=== PATIENT | male | born 1980 | race Caucasian/White ===

== ENCOUNTER 2024-09-17 08:21 | Outpatient (REF) | payer BC, SELFPAY ==
[2024-09-17 09:50] LABS: MANUAL DIFF FLAG NO
[2024-09-17 10:31] LABS: Basophils Percent Auto 0.6 % (0-2); Eosinophils Absolute Auto 0.1 X10*3/uL (0.0-0.4); Eosinophils Percent Auto 1.7 % (0-4); Hematocrit 40.6 % (42.0-52.0); Hemoglobin 14.2 g/dl (14.0-18.0); Imm Gran Abs Auto 0.03 X10*3/uL (0.00-0.03); Imm Gran Pct Auto 0.6 % (0.0-0.4); Lymphocytes Absolute Auto 1.7 X10*3/uL (1.2-4.9); Lymphocytes Percent Auto 30.8 % (20-40); Mean Corpuscular Hemoglobin 28.6 pg (27.0-33.0); Mean Corpuscular Volume 81.7 fL (80.0-98.0); Mean Platelet Volume 11.5 fL (9.4-12.4); Monocytes Absolute Auto 0.4 X10*3/uL (0.1-1.2); Monocytes Percent Auto 6.5 % (2-11); Neutrophils Absolute Auto 3.3 x10*3/uL (2.0-8.3); Neutrophils Percent Auto 59.8 % (45-73); Platelet Count 219 X10*3/uL (160-400); Red Blood Count 4.97 X10*6/uL (4.60-5.80); Red Cell Distribution Width 12.3 % (11.0-16.0); White Blood Count 5.4 X10*3/uL (4.8-10.8)
[2024-09-17 11:19] LABS: Uric Acid 7.4 mg/dL (3.4-7.0)
[2024-09-19 03:13] LABS: Lyme Abs Screen <0.90 index
[2024-09-28 07:13] LABS: Islet Cell Antibody Screen NEGATIVE (NEGATIVE)
== END 2024-09-17 08:22 | disposition home or self-care (01) ==
LOC: HO.LAB 08:21
PROVIDERS: PCP Family Medicine; Visit Provider Internal Medicine
DX: E11.65 Type 2 diabetes mellitus with hyperglycemia (principal); R22.42 Localized swelling, mass and lump, left lower limb; M79.675 Pain in left toe(s); G57.90 Unspecified mononeuropathy of unspecified lower limb
CPT/HCPCS: 36415; 82947; 84550; 85025; 86341; 86617; 86618

== ENCOUNTER 2024-09-17 08:21 | Outpatient (AMB) | payer BC, SELFPAY ==
--- NOTE | 2024-09-17 08:23 | A.OFFVIS_ITS ---
Vital Signs 09/17/24 08:28 Height 5 ft 8 in Weight 209 lb 7.026 oz BMI 31.8 BP 118/78 Blood Pressure Location Rt brachial Position Sitting Pulse 90 Pulse Source Pulse Oximeter Intake Visit Reasons: DM/CONFIRMED Intake Note: NEW Patient presents today to establish treatment for Type 2 Diabetes Mellitus: Last Diabetic eye exam was on: DUE Last Podiatry exam was on: 09/05/2024, [facility] Most recent HbA1c: 9.7%, 07/27/2024, PCP Random Glucose- 188 mg/dL, Today Hoist Cylinder Loader Required: No Accompanied by: Self / Same As Patient Allergies No Known Allergies Allergy (Verified 09/17/24 08:26) HPI Comments Details: The patient is a 44 year old presenting for diabetes consultation Past medical: DVT, hyperlipidemia, neuropathy, recent LLE pain Diagnosed ~15 years ago. Last A1C 9.7% -Sept at [facility]. A few months prior 11.3 at orthopedics On metformin 1000mg twice daily. Using one touch glucometer. Checking fasting glucose. Did not bring meter today. Has been seeing orthopedics for what was originally thought to be left achilles tendinitis. 2 months into treatment found out he had left calf DVT. He is currently on eliquis. Has upcoming hematology consult. Left calf pain improved. Was having redness swelling of the left great toe, swelling of the foot. Redness and swelling of the left great toe has subsided but still having some swelling and fairly significant pain in the right distal leg and foot. Says decreased movement in left toe. ROS see HPI PHYSICAL EXAM: GENERAL: Alert and oriented x 3. NAD EYES: EOMI. Anicteric. HENT: Moist mucous membranes. No scleral icterus. No cervical lymphadenopathy. LUNGS: Clear to auscultation bilaterally. CARDIOVASCULAR: Regular rate and rhythm. No murmur. No JVD. ABDOMEN: Soft, non-tender +bs EXTREMITIES: Trace left lower extremity edema, palpable-1+ DP pulse SKIN: No rashes or lesions. Warm. NEUROLOGIC: No focal neurological deficits. CN II-XII grossly intact PSYCHIATRIC: Cooperative. Appropriate mood and affect REPLACED BY [facility] Surgical History No pertinent past surgical history Social History Alcohol intake: never Patient Tobacco Use Status: Never used Tobacco Physical Exam Vital Signs: Last Vital Signs Pulse 90 09/17/24 08:28 BP 118/78 09/17/24 08:28 BMI result Body Mass Index 31.8 Results Reviewed Results Reviewed: Laboratory Last Values Glucose (Clinic) 188 mg/dL (60-115) H 09/17/24 08:33 Assessment & Plan Assessment & Plan (1) Diabetes mellitus with hyperglycemia: Code(s): E11.65 - Type 2 diabetes mellitus with hyperglycemia Category: Medical Qualifiers: Diabetes mellitus type: type 2 Diabetes mellitus alf insulin use: without alf use Qualified Code(s): E11.65 - Type 2 diabetes mellitus with hyperglycemia Plan: Uncontrolled Continue checking fasting blood glucose once daily Start actos 30mg daily, mounjaro 2.5mg weekly Continue metformin 1000mg twice daily Referral to nutrition Referred to opho (2) Lower extremity neuropathy: Code(s): G57.90 - Unspecified mononeuropathy of unspecified lower limb Category: Medical Qualifiers: Laterality: bilateral Qualified Code(s): G57.93 - Unspecified mononeuropathy of bilateral lower limbs Plan: Left>right Monofilament, vibratory sense previously normal EMG ordered Referral for vascular pending hematology consult continue gabapentin (3) Localized swelling of toe of left foot: Code(s): R22.42 - Localized swelling, mass and lump, left lower limb Category: Medical Plan: check uric acid, cbc Orders: Orders Uric Acid Today E11.65 - Type 2 diabetes mellitus with hyperglycemia, G57.90 - Unspecified mononeuropathy of unspecified lower limb, M79.675 - Pain in left toe(s), R22.42 - Localized swelling, mass and lump, left lower limb Islet Cell Antibody Scrn/Titer Today E11.65 - Type 2 diabetes mellitus with hyperglycemia, G57.90 - Unspecified mononeuropathy of unspecified lower limb, M79.675 - Pain in left toe(s), R22.42 - Localized swelling, mass and lump, left lower limb Complete Blood Count Auto Diff Today E11.65 - Type 2 diabetes mellitus with hyperglycemia, G57.90 - Unspecified mononeuropathy of unspecified lower limb, M79.675 - Pain in left toe(s), R22.42 - Localized swelling, mass and lump, left lower limb NE electromyogram (EMG) Today G57.90 - Unspecified mononeuropathy of unspecified lower limb Lyme IgG/IgM w/reflex to WB Today G57.90 - Unspecified mononeuropathy of unspecified lower limb, R22.42 - Localized swelling, mass and lump, left lower limb Referrals Anthropology Faculty Member Nutrition Referral E11.65 - Type 2 diabetes mellitus with hyperglycemia Vascular Surgery Referral E11.65 - Type 2 diabetes mellitus with hyperglycemia, G57.90 - Unspecified mononeuropathy of unspecified lower limb, M79.675 - Pain in left toe(s), R22.42 - Localized swelling, mass and lump, left lower limb Ophthalmology Referral E11.65 - Type 2 diabetes mellitus with hyperglycemia, G57.90 - Unspecified mononeuropathy of unspecified lower limb, M79.675 - Pain in left toe(s), R22.42 - Localized swelling, mass and lump, left lower limb Medications: New pioglitazone 30 mg PO DAILY 90 tabs 3RF Mounjaro (tirzepatide) for 4 weeks 2.5 mg (0.5 mL) subcut QWEEK 2 mL 3RF NS Coding Level of Care Code New Pt Level 4 (45435) Complex EM visit Add On G2211 Diagnoses Type 2 diabetes mellitus with hyperglycemia, without long-term current use of insulin E11.65 Diabetes mellitus type: type 2 Diabetes mellitus alf insulin use: without manager terminal use Neuropathy involving both lower extremities G57.93 Laterality: bilateral Localized swelling of toe of left foot R22.42
[2024-09-17 08:28] VITALS: BP 118/78; PULSE 90; BMI 31.8
[2024-09-17 08:38] LABS: Glucose, Whole Blood 188 mg/dL (60-115)
== END 2024-09-17 09:11 | disposition home or self-care (01) ==
PROVIDERS: PCP Family Medicine; Visit Provider Internal Medicine
DX: E11.65 Type 2 diabetes mellitus with hyperglycemia (principal); G57.93 Unspecified mononeuropathy of bilateral lower limbs; R22.42 Localized swelling, mass and lump, left lower limb

== ENCOUNTER 2024-09-30 08:26 | Outpatient (AMB) | payer BC, SELFPAY ==
[2024-09-30 08:34] VITALS: BMI 31.2
--- NOTE | 2024-09-30 08:34 | A.OFFVIS_ITS ---
VS Expanded 09/30/24 08:34 09/30/24 08:46 Height 5 ft 8 in 5 ft 8 in Weight 205 lb 0.478 oz 205 lb BMI 31.2 31.2 Intake Visit Reasons: T2DM/CONFIRMED Allergies No Known Allergies Allergy (Verified 09/17/24 08:26) Nutrition Presentation Details: Pt presents for MNT for T2DM. Pt was referred by PCP Pt reports having increased appetite and snacking throughout the day. Has 2-3 meals/day B: Fruit/Veg juices, eggs rodriguez cheese, diet soda snack: nuts/fruits/crackers, diet soda L:fruits/crackers D: pasta/beef,diet soda fruits: 4+ fish: does not include veg: salads 3x/wk in juices dairy: 4+ (cheese) fluids: water/diet beverages 40-60 oz/d physical activity: sedentary etoh/smoking----- BS Monitoring Most Recent Diabetes Results: No Data to Display UPM-Axeyssa-Up.Jeor Equation Height: 5 ft 8 in Weight: 205 lb Resting Metabolic Rate: 1796.95 Calculated Activity Level: Mild Activity Calories Needed to Maintain Weight: 2470.81 Diagnosis Nutrition problem #1: excessive energy intake As related to (etiology) #1: lack of nutrit education As evidenced by (sign/symptom) #1: knowledge deficit of diet Monitoring/Goals Nutrition problem monitoring: level of knowledge/skill and total CHO intake Outcome progress: verbalized understanding [facility] Surgical History No pertinent past surgical history Social History Alcohol intake: never Patient Tobacco Use Status: Never used Tobacco Assessment & Plan Assessment & Plan (1) Diabetes mellitus with hyperglycemia: Code(s): E11.65 - Type 2 diabetes mellitus with hyperglycemia Category: Medical Qualifiers: Diabetes mellitus type: type 2 Diabetes mellitus keno terminal operator insulin use: without keno terminal operator use Qualified Code(s): E11.65 - Type 2 diabetes mellitus with hyperglycemia Plan: Wt: 93 Kg ( 10/19 ) Est kcal needs as per MSJ: 2500 (40% carb, 30% protein/fat) Est fluid needs as per 25-30 ml/d: 2800 Est prot per day as per 1 g/kg bw: 93 Recommend fiber intake : 8-10 g per day and gradually increase to 25-28 g per day for women and 35-38 g for men or as tolerated Recommend sodium intake per day : less than 2300 mg Educated patient on: ( R = reviewed V = verbalizes understanding N/R = needs review N/A = not applicable * Food sources of carbohydrate, adequate serving sizes and its role in various health conditions: R * Differences between complex carbohydrates a simple carbohydrates, role of fiber in diet: R * Lean protein sources of foods: R V NR * Differences between types of fats and role in diet (mono on saturated fat fatty acids, saturated fatty acids, trans fats): R basic * Food sources of sodium in salt and healthy modifications for heart health in kidney health: R V R/V * Vitamins and minerals: R V N/R * Healthy plate method concept: R * Physical activity: Benefits a precaution: R V N/R * Hypoglycemia protocol (rule of 15): R V N/R * Dietary prevention of Hyperglycemia: R Patient Instructions: Choose low fat food choices and reduce total carb to 80 g or less per meal following healthy plate method Keep hydrated by having water with meals and snacks Coding Level of Care Code Nutr Indiv Intake (79605) Diagnoses Type 2 diabetes mellitus with hyperglycemia, without long-term current use of insulin E11.65 Diabetes mellitus type: type 2 Diabetes mellitus senior living insulin use: without keno terminal operator use Time Spent (min) 30
[2024-09-30 08:46] VITALS: BMI 31.2
== END 2024-09-30 11:37 | disposition home or self-care (01) ==
LOC: HO.ENCR 08:26
PROVIDERS: PCP Family Medicine; Visit Provider Dietitian, Registered
DX: E11.65 Type 2 diabetes mellitus with hyperglycemia (principal)

== ENCOUNTER → 2024-09-30 08:26 | Outpatient (BNVA) | payer BC, SELFPAY | PROVIDERS: PCP Family Medicine; Visit Provider Dietitian, Registered | DX: E11.65 Type 2 diabetes mellitus with hyperglycemia (principal); Z71.3 Dietary counseling and surveillance | CPT/HCPCS: 97802 ==

== ENCOUNTER 2024-10-02 09:29 | Outpatient (AMB) | payer BC, SELFPAY ==
--- NOTE | 2024-10-02 09:30 | A.OFFVIS_ITS ---
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 Pt states he has history of a left LE blood clot and states swelling has reduced. His concern is his stiff toes, has difficulty putting on shoes. States had an ultrasound in Jul 2024 @ [facility]. He states he does get some discoloration. 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 He did have a DVT that was diagnosed in June of this year and has been on Eliquis 5 mg b.i.d. he is going to be on Eliquis for 6 months. He is followed by Hematology, who prescribed the Eliquis. He is a diabetic his last A1c was 9.7% in July. Complaints include pain in his left lower extremity calf, swelling of lower extremities particularly the left, cramping, fatigue, and he aviness of the lower extremities. It has been affecting their daily activities including walking and standing. It is noted more so in the left leg. He is a nonsmoker Patient denies any previous venous surgery or injections. Patient states he was diagnosed with a DVT in June of 2024 and has been on Eliquis b.i.d. since. Patient denies any history of phlebitis. Trial of compression includes - a boot he is wearing for a drop foot and elevation. They now present for vascular evaluation regarding their varicose veins. [facility] Surgical History No pertinent past surgical history Social History Alcohol intake: never Patient Tobacco Use Status: Never used Tobacco Review of Systems Const Reports as per HPI and Denies weakness ENT Reports Normal hearing present and Denies dizziness Card Reports as per HPI, Denies chest pain, Denies chest pain at rest, Denies chest pain with activity, Denies dyspnea and Denies dyspnea on exertion Resp Reports as per HPI, Denies cough, Denies dyspnea and Denies dyspnea on exertion GI Reports as per HPI, Denies abdominal pain, Denies nausea and Denies vomiting Musc Denies numbness Skin/Breast Reports as per HPI, Denies erythema and Denies wounds Neuro Reports Normal hearing present, Denies dizziness, Denies numbness, Denies Sens ory deficit (Neuro) and Denies weakness Psych Reports no additional complaints Endo Reports no additional complaints Physical Exam Vital Signs: BMI result Body Mass Index 31.2 Const General: healthy appearing and no acute distress Orientation/consciousness: patient oriented x3 HEENT Head: Yes normal to inspection Ears: hearing grossly normal bilaterally Mouth: Normal oral and palatal mucosa present Resp Effort & Inspection: normal respiratory effort and able to speak in complete sentences Auscultation: clear to auscultation bilaterally Cardio Jugular venous distension: no JVD Rate: regular rate Rhythm: regular rhythm Heart sounds: S1 normal heart sound present and S2 normal heart sound present Bruits: no abdominal aortic bruits, no carotid bruits, no femoral bruits and no renal bruits Peripheral pulses: Peripheral pulses 2+ throughout GI Inspection: Yes normal to inspection Palpation (GI): No Abdominal aortic bruit present Skin General skin exam: no rashes or lesions noted Wounds: no wounds Hair: normal Neuro General: patient oriented x3 Cranial nerves: Yes Normal hearing present Cognition (Neuro): normal cognition Gait exam (Neuro): Normal gait present Motor exam (neuro): 5/5 motor strength present throughout Sensory Exam: No Sensory deficit (Neuro) Extrem Other: Left lower extremity: +1 peripheral edema noted. Discoloration from mid ding to the ankle. Decreased range of motion of the left foot. Palpable DP pulses. CEAP: C - 4 E - primary A - superficial P - reflux General: Yes normal to inspection, Yes full ROM, Yes capillary refill normal and Yes normal gait Assessment & Plan Assessment & Plan (1) Varicose veins of both lower extremities with inflammation: Code(s): I83.11 - Varicose veins of right lower extremity with inflammation; I83.12 - Varicose veins of left lower extremity with inflammation Category: Medical Plan: Nick presenting as a referral from endocrinology for ongoing left lower extremity swelling and pain. He does have a history of a DVT, diagnosed in June. He continues on Eliquis b.i.d.. In short, the patient has evidence of venous insufficiency. I have discussed the pathophysiology with the patient. In addition I have provided informational material regarding venous disease to the patient. We have discussed conservative measures including compression, elevation, and exercise. I have also provided a handout regarding appropriate use of compression stockings and where to purchase good compression stockings as well. He does wear a boot daily, mostly at work, due to a foot drop/difficulty bearing weight on his left foot. I have taken the liberty of ordering venous insufficiency testing with the patient. They will follow up with me after testing. The patient had an opportunity to ask questions regarding the treatment plan. All questions were answered. No major barriers to understanding were identified. The patient expressed understanding and agreement with the above treatment plan. The patient is aware they should contact our office by phone for worsening of the current condition or the appearance of new symptoms. Thank you for allowing me to participate in the vascular care of this patient. If you have any questions or concerns regarding the treatment for the above condition please do not hesitate to contact me. The office telephone contact is [phone]. This note is constructed using voice recognition software. While every effort has been made to ensure accuracy, optimization engineer errors may have been included. Thank you for allowing me to participate in the care of your patient. Yours sincerely, STEVIE Cage Orders: Orders US venous duplex LE BI 1 Week I83.11 - Varicose veins of right lower extremity with inflammation, I83.12 - Varicose veins of left lower extremity with inflammation Coding Level of Care Code New Pt New Pt Level 4 (16759) Patient Type New Diagnoses Varicose veins of both lower extremities with inflammation I83.11; I83.12
[2024-10-02 09:31] VITALS: BMI 31.2
== END 2024-10-02 09:53 | disposition home or self-care (01) ==
LOC: HO.HVS 09:29
PROVIDERS: PCP Family Medicine; Visit Provider Physician Assistant Surgical
DX: I83.11 Varicose veins of right lower extremity with inflammation (principal); I83.12 Varicose veins of left lower extremity with inflammation
CPT/HCPCS: 99204

== ENCOUNTER 2024-10-17 08:25 | Outpatient (REF) | payer BC, SELFPAY | END 2024-10-17 08:26 | disposition home or self-care (01) | LOC: HO.US 08:25 | PROVIDERS: PCP Family Medicine; Visit Provider Physician Assistant Surgical | DX: I83.11 Varicose veins of right lower extremity with inflammation (principal); I83.12 Varicose veins of left lower extremity with inflammation | CPT/HCPCS: 93970 ==

== ENCOUNTER 2024-11-04 15:13 | Outpatient (AMB) | payer BC, SELFPAY ==
--- NOTE | 2024-11-04 15:18 | MHC.OFFVIS ---
Intake Visit Reasons: follow up s/p US 10/17/24 Intake Note: F/U US. Pt seen at [facility] after Thanksgiving. Pt had left leg swelling. DVT rule out. Special Needs Babysitter Required: No Accompanied by: Self / Same As Patient Allergies No Known Allergies Allergy (Verified 10/02/24 09:38) HPI HPI follow up s/p US 10/17/24: Details: Mega, a pleasant 44-year-old male patient, is presenting today for a follow up to a ultrasound performed on 10/17/2024. He continues with left ankle pain in his presenting today with his foot the boot. He was recently seen at [facility] ER for increased swelling in the ankle as well as the ankle pain. There was no DVT found on ultrasound and no fractures on x-ray. [facility] Surgical History No pertinent past surgical history Social History Alcohol intake: never Patient Tobacco Use Status: Never used Tobacco Review of Systems Const Reports as per HPI and Denies weakness ENT Reports Normal hearing present and Denies dizziness Card Reports as per HPI, Denies chest pain, Denies chest pain at rest, Denies chest pain with activity, Denies dyspnea and Denies dyspnea on exertion Resp Reports as per HPI, Denies cough, Denies dyspnea and Denies dyspnea on exertion GI Reports as per HPI, Denies abdominal pain, Denies nausea and Denies vomiting Musc Denies numbness Skin/Breast Reports as per HPI, Denies erythema and Denies wounds Neuro Reports Normal hearing present, Denies dizziness, Denies numbness, Denies Sensory deficit (Neuro) and Denies weakness Psych Reports no additional complaints Endo Reports no additional complaints Physical Exam Const General: healthy appearing and no acute distress Orientation/consciousness: patient oriented x3 HEENT Head: Yes normal to inspection Ears: hearing grossly normal bilaterally Mouth: Normal oral and palatal mucosa present Resp Effort & Inspection: normal respiratory effort and able to speak in complete sentences Auscultation: clear to auscultation bilaterally Cardio Jugular venous distension: no JVD Rate: regular rate Rhythm: regular rhythm Heart sounds: S1 normal heart sound present and S2 normal heart sound present Bruits: no abdominal aortic bruits, no carotid bruits, no femoral bruits and no renal bruits Peripheral pulses: Peripheral pulses 2+ throughout GI Inspection: Yes normal to inspection Palpation (GI): No Abdominal aortic bruit present Skin General skin exam: no rashes or lesions noted Wounds: no wounds Hair: normal Neuro General: patient oriented x3 Cranial nerves: Yes Normal hearing present Cognition (Neuro): normal cognition Gait exam (Neuro): Normal gait present Motor exam (neuro): 5/5 motor strength present throughout Sensory Exam: No Sensory deficit (Neuro) Extrem Other: Left foot: In a boot, not taken down this afternoon. General: Yes normal to inspection, Yes full ROM, Yes capillary refill normal and Yes normal gait Results Reviewed Results Reviewed: Brief summary of venous insufficiency testing is as follows: right great saphenous vein: negative right small saphenous vein: negative right accessory vein: none present left great saphenous vein: negative left small saphenous vein: negative left accessory vein: none present Please note there is no evidence of any venous aneurysms or significant tortuosity Assessment & Plan Assessment & Plan (1) Varicose veins of both lower extremities with inflammation: Code(s): I83.11 - Varicose veins of right lower extremity with inflammation; I83.12 - Varicose veins of left lower extremity with inflammation Category: Medical Plan: Mega is presenting today as a follow up to his venous insufficiency ultrasound, performed on 10/17/2024. There was no venous insufficiency found bilaterally. He does continue to endorse left lower extremity pain and swelling, particularly around his ankle. He will be following up with orthopedics for ongoing ankle popping and pain. We discussed to continue with compression stockings, elevation, and a well-balanced healthy diet. We discussed that if anything else changes he can reach back out to us. We will see him only as needed at this point. There are any questions or concerns, please do not hesitate to reach out to us. Coding Level of Care Code Est Pt Level 4 (79837) Diagnoses Varicose veins of both lower extremities with inflammation I83.11; I83.12 Comment Review of venous insufficiency ultrasound
== END 2024-11-04 15:47 | disposition home or self-care (01) ==
PROVIDERS: PCP Family Medicine; Visit Provider Physician Assistant Surgical
DX: I83.11 Varicose veins of right lower extremity with inflammation (principal); I83.12 Varicose veins of left lower extremity with inflammation
CPT/HCPCS: 99214

== ENCOUNTER 2024-12-13 04:10 | Emergency (ER) | payer BC, SELFPAY ==
--- NOTE | ~2024-12-13 | US_ITS ---
CLINICAL HISTORY: pain, swelling, hx DVT Venous duplex ultrasound left lower extremity Comparison: [place] - US VENOUS DUPLEX LE BI - 10/17/24 08:45 EST Findings: The visualized deep veins are fully compressible with normal Doppler color flow and spectral tracings. No popliteal cyst. IMPRESSION: 1. Negative for left lower extremity deep vein thrombosis. This document has been electronically signed by: Jacqueline Crisostomo MD on 12/13/2024 07:05:16
[2024-12-13 04:34] VITALS: BP 139/82; PULSE 103; RESP 16; TEMP 36.6; O2SAT 97; BMI 30.4
--- NOTE | 2024-12-13 04:42 | ECG_ITS ---
Test Reason : CHEST PAIN Blood Pressure : */* mmHG Vent. Rate : 95 BPM Atrial Rate : 95 BPM P-R Int : 134 ms QRS Dur : 106 ms QT Int : 368 ms P-R-T Axes : 46 17 26 degrees QTcB Int : 462 ms Normal sinus rhythm Normal ECG No previous ECGs available Referred By: Generic ED Physician Electronically Signed By: Ivan Dalton
[2024-12-13 05:04] LABS: Basophils Percent Auto 0.5 % (0-2); Eosinophils Absolute Auto 0.1 X10*3/uL (0.0-0.4); Eosinophils Percent Auto 1.2 % (0-4); Hematocrit 40.3 % (42.0-52.0); Hemoglobin 14.7 g/dl (14.0-18.0); Imm Gran Abs Auto 0.03 X10*3/uL (0.00-0.03); Imm Gran Pct Auto 0.5 % (0.0-0.4); Lymphocytes Absolute Auto 1.4 X10*3/uL (1.2-4.9); MANUAL DIFF FLAG NO; Mean Corpuscular HGB Conc 36.5 g/dl (31.0-36.0); Mean Corpuscular Hemoglobin 29.8 pg (27.0-33.0); Mean Corpuscular Volume 81.6 fL (80.0-98.0); Mean Platelet Volume 11.1 fL (9.4-12.4); Monocytes Absolute Auto 0.5 X10*3/uL (0.1-1.2); Neutrophils Absolute Auto 3.8 x10*3/uL (2.0-8.3); Neutrophils Percent Auto 65.8 % (45-73); Platelet Count 183 X10*3/uL (160-400); Red Blood Count 4.94 X10*6/uL (4.60-5.80); Red Cell Distribution Width 12.3 % (11.0-16.0); White Blood Count 5.8 X10*3/uL (4.8-10.8)
[2024-12-13 05:12] LABS: D Dimer High Sensitivity < 150 NG/ML
[2024-12-13 05:25] LABS: Alanine Aminotransferase 42 U/L (0-40); Alkaline Phosphatase 86 U/L (39-117); Anion Gap 15 (12-20); Aspartate Amino Transferase 24 U/L (5-37); Bilirubin Total 0.8 mg/dL (0.0-1.0); Blood Urea Nitrogen 17 mg/dL (9-16); Calcium 9.6 mg/dL (8.4-10.2); Carbon Dioxide 21 mmol/L (22-29); Chloride 106 mmol/L (96-108); Creatinine Clr Calc Pharmacy 127.2; Estimated Glomerular Filt Rate > 60; Glucose Random 233 mg/dL (60-115); Potassium 4.1 mmol/L (3.3-5.1); Sodium 138 mmol/L (135-145); Total Protein 7.2 g/dL (6.5-8.0)
[2024-12-13 05:27] LABS: Troponin-I High Sensitivity < 2.7 ng/L (<3.5-35.0)
--- NOTE | 2024-12-13 06:04 | ED_ITS ---
HPI - Chest Pain General Chief Complaint: Chest Pain Stated Complaint: left lwr lg blot clot/chest pains last couple wks Time Seen by Provider: 12/13/24 05:54 Source: patient Mode of arrival: ambulatory Limitations: no limitations History of Present Illness ED Provider: Dr. Laura Solomon HPI narrative: Patient comes to the emergency room complaining of left lower extremity pain and swelling. Patient states that he has history of a DVT in his left leg. Patient states just taking Eliquis for 3 months. Patient has stopped taking it as recommended by his doctors. Patient states that when he started having the pain and swelling again, he had a few tablets of Eliquis left over and started taking 5 mg of Eliquis b.i.d., which she has been taking for 2-3 days. Related Data Home Medications ?Medication ?Instructions ?Recorded ?Confirmed apixaban 5 mg tablet (Eliquis) mg PO 09/17/24 blood sugar diagnostic (OneTouch #10 ea 09/17/24 Ultra Test strips) diclofenac sodium 1 % topical gel topical 09/17/24 furosemide 20 mg tablet 20 mg PO DAILY 09/17/24 lancets 33 gauge (OneTouch Delica #100 ea 09/17/24 Plus Lancet) metformin 1,000 mg tablet 1,000 mg PO BID 09/17/24 Previous Rx's ?Medication ?Instructions ?Recorded tramadol 50 mg tablet 50 mg PO BID PRN pain #8 tabs 12/13/24 Allergies Allergy/AdvReac Type Severity Reaction Status Date / Time No Known Allergies Allergy Verified 12/13/24 04:40 Review of Systems 2 Review of Systems: Constitutional : No Weight loss, No Fever, No Chills, No Night Sweats, No Fatigue, No Malaise ENT/Mouth : No Hearing loss, No Ear Pain, No Nasal Congestion, No Sinus Pain, No Hoarseness, No sore throat, No Rhinorrhea, No Swallowing Difficulty Eyes: No Eye Pain, No Swelling, No Redness, No Foreign Body, No Discharge, No Vision Changes Cardiovascular : No Chest Pain, No SOB, No Dyspnea on Exertion, No Orthopnea, No Edema, No Palpitations Respiratory : No Cough, No Sputum, No Wheezing, No Smoke Exposure, No Dyspnea Gastrointestinal : No Nausea, No Vomiting, No Diarrhea, No Constipation, No abdominal Pain, No Hematochezia, No Melena Genitourinary : no irregular bleeding, No Dysuria, No Urinary Frequency, No Hematuria, No Urinary Incontinence, No Urgency, No Flank Pain, No Urinary Flow Changes, No Hesitancy Musculoskeletal : Complaining of left lower extremity pain and swelling in the calf area Skin : No Skin Lesions, No rash Neuro : No Weakness, No Numbness, No Paresthesias, No Loss of Consciousness, No Dizziness, No Headache Psych : No Anxiety/Panic, No Depression, No SI/HI/AH/VH, No Social Issues, Heme/Lymph: No Bruising, No Bleeding,No Lymphadenopathy Endocrine : No Polyuria, No Polydipsia, No Temperature Intolerance [facility] Past Medical History Medical History (Updated 12/13/24 @ 07:10 by Laura Solomon MD) DVT (deep venous thrombosis) Varicose veins of both lower extremities with inflammation Diabetes mellitus with hyperglycemia Surgical History No pertinent past surgical history Social History Social History Alcohol intake: never Patient Tobacco Use Status: Never used Tobacco Smoked in Last 30 Days: No Use of substances other than those prescribed or required for medical reasons: No Advance Directives: No Advance Directives Information Provided: Yes Do you have a plan to hurt others: No Plan Physical Exam 2 Vital Signs: Vital Signs: Last Vital Signs Temp 97.8 F 12/13/24 04:34 Pulse 103 H 12/13/24 04:34 Resp 16 12/13/24 04:34 BP 139/82 12/13/24 04:34 Pulse Ox 97 12/13/24 04:34 O2 Del Method Room Air 12/13/24 04:34 BMI result Body Mass Index 30.4 Const: Other: Appearance: Alert. Oriented X3. No acute distress. Eyes: Pupils equal, round and reactive to light. ENT: Pharynx normal. Neck: Normal inspection. Neck supple. No lymph nodes noted. No crepitus CVS: Normal heart rate and rhythm. Pulses normal. Normal S1 and S2 Respiratory: No respiratory distress. Breath sounds normal. No Wheezing. No rales Abdomen: Soft and nontender. No rigidity. No distention. Skin: Skin warm and dry. Normal skin color. Normal skin turgor. Extremities: Left lower extremity in a boot. When taken off, patient does have palpable veins in the calf. However, the leg is not significantly swollen or erythematous. Neuro: Oriented X 3. No motor deficit. No sensory deficit. Moving all extremities. No slurred speech. CN 2 through 12 grossly intact Psych: calm, cooperative, normal affect Medical Decision Making Medical Decision Making [facility] Narrative: My interpretation of labs: No significant abnormality in patient's hemoglobin, chemistry within normal limits, D-dimer negative Ultrasound of lower extremity: Negative for DVT. Differential Diagnosis Differential Diagnoses: The differential diagnosis associated with the presentation includes (DVT, thrombophlebitis) Lab Data [facility] Lab Attestation statement: I reviewed the patient's lab results. 12/13/24 04:56 12/13/24 04:56 Labs: Lab Results 12/13/24 Range/Units 04:56 WBC 5.8 (4.8-10.8) X10*3/uL RBC 4.94 (4.60-5.80) X10*6/uL Hgb 14.7 (14.0-18.0) g/dl Hct 40.3 L (42.0-52.0) % MCV 81.6 (80.0-98.0) fL MCH 29.8 (27.0-33.0) pg MCHC 36.5 H (31.0-36.0) g/dl RDW 12.3 (11.0-16.0) % Plt Count 183 (160-400) X10*3/uL MPV 11.1 (9.4-12.4) fL Immature Gran % (Auto) 0.5 H (0.0-0.4) % Neut % (Auto) 65.8 (45-73) % Lymph % (Auto) 24.0 (20-40) % [place] % (Auto) 8.0 (2-11) % Eos % (Auto) 1.2 (0-4) % Baso % (Auto) 0.5 (0-2) % Lymph # (Auto) 1.4 (1.2-4.9) X10*3/uL [place] # (Auto) 0.5 (0.1-1.2) X10*3/uL Eos # (Auto) 0.1 (0.0-0.4) X10*3/uL Baso # (Auto) 0.0 (0.0-0.2) X10*3/uL Abs Immat Gran (auto) 0.03 (0.00-0.03) X10*3/uL Absolute Neuts (auto) 3.8 (2.0-8.3) x10*3/uL Absolute Nucleated RBC 0.000 (0.0-0.012) X10*3/uL Nucleated RBC % (auto) 0.0 (0.0-0.2) /100WBC D-Dimer High Sensitivty < 150 NG/ML Sodium 138 (135-145) mmol/L Potassium 4.1 (3.3-5.1) mmol/L Chloride 106 (96-108) mmol/L Carbon Dioxide 21 L (22-29) mmol/L Anion Gap 15 (12-20) BUN 17 H (9-16) mg/dL Creatinine 0.81 (0.5-1.4) mg/dL Estim Creat Clear Calc 127.2 Estimated GFR > 60 Random Glucose 233 H (60-115) mg/dL Calcium 9.6 (8.4-10.2) mg/dL Total Bilirubin 0.8 (0.0-1.0) mg/dL AST 24 (5-37) U/L ALT 42 H (0-40) U/L Alkaline Phosphatase 86 (39-117) U/L Troponin I High Sens < 2.7 (<3.5-35.0) ng/L Total Protein 7.2 (6.5-8.0) g/dL Albumin 4.0 (3.5-5.0) g/dL Independent Interpretation I performed an independent interpretation of an: Ultrasound Radiology Impression Discussion of test interpretation with radiology: I have reviewed the radiologist's reading. Radiologist Impression: The visualized deep veins are fully compressible with normal Doppler color flow and spectral tracings. No popliteal cyst. IMPRESSION: 1. Negative for left lower extremity deep vein thrombosis Discharge Plan Discharge Clinical Impression: Localized swelling of toe of left foot Patient Disposition: Home, Self-Care Instructions: Leg Pain (ED) Additional Instructions: Please follow-up with your primary care physician tomorrow. If you have any worsening or new symptoms, please return to the emergency room or call 911 Prescriptions: New tramadol 50 mg tablet 50 mg PO BID PRN (Reason: pain) Qty: 8 0RF No Action diclofenac sodium 1 % gel topical furosemide 20 mg tablet 20 mg PO DAILY Eliquis 5 mg tablet PO (DME) lancets [OneTouch Delica Plus Lancet] 33 gauge misc See Rx Instructions .ROUTE DAILY Qty: 100 Rx Instructions: As directed metformin 1,000 mg tablet 1,000 mg PO BID (DME) OneTouch Ultra Test Strip See Rx Instructions .ROUTE .MEDSUPPLY Qty: 10 Rx Instructions: As directed Print Language: Faroese
[2024-12-13 07:25] VITALS: BP 131/78; PULSE 92; RESP 14; TEMP 36.4; O2SAT 94
== END 2024-12-13 07:33 | disposition home or self-care (01) ==
PROVIDERS: Emergency Provider Emergency Medicine; PCP Family Medicine
DX: R22.42 Localized swelling, mass and lump, left lower limb (principal); M79.662 Pain in left lower leg; E11.9 Type 2 diabetes mellitus without complications; Z86.718 Personal history of other venous thrombosis and embolism; Z79.84 Long term (current) use of oral hypoglycemic drugs
CPT/HCPCS: 36415; 80053; 84484; 85025; 85379; 93005; 93971; 99284

== ENCOUNTER → 2024-12-13 04:42 | Outpatient (BNV) | payer BC, SELFPAY | PROVIDERS: Emergency Provider Emergency Medicine; PCP Family Medicine; Visit Provider Internal Medicine Cardiovascular Disease | DX: R07.9 Chest pain, unspecified (principal) | CPT/HCPCS: 93010 ==

== ENCOUNTER → 2024-12-13 06:03 | Outpatient (BNV) | payer BC, SELFPAY | PROVIDERS: Emergency Provider Emergency Medicine; PCP Family Medicine; Visit Provider Radiology Diagnostic Radiology | DX: M79.605 Pain in left leg (principal) | CPT/HCPCS: 93971 ==

== ENCOUNTER 2024-12-24 14:45 | Outpatient (REF) | payer BC, SELFPAY ==
--- NOTE | 2024-12-24 14:48 | EMG_ITS ---
Chief complaint: Weakness on left big toe extension. Left footdrop. Very painful along left peroneus longus tendon. 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 Endorses numbness in both feet, left worse than right. Denies associated lower back pain. Poorly-controlled diabetes. History of venous insufficiency. Has been off Eliquis for the last 2 weeks. History of DVT. Reason for referral: Evaluate for neuropathy Referred by: Dr. Edwards Procedure done: Bilateral lower extremity NCS/EMG Precautions and/or limitations: None The limb temperature was monitored continuously and remained between 32-36 degrees C during the performance of the NCS. Nerve Conduction Studies Anti Sensory Summary Table ?Stim Site NR Onset (ms) Norm Onset (ms) Peak (ms) Norm Peak (ms) O-P Amp (?V) Norm O-P Amp Site1 Site2 Delta-0 (ms) Dist (cm) Kirill (m/s) Norm Kirill (m/s) Left Sural Anti Sensory (Lat Mall) Calf NR <4.0 >5.0 Calf Lat Mall 14.0 Right Sural Anti Sensory Run #2 (Lat Mall) Calf NR <4.0 >5.0 Calf Lat Mall 14.0 Motor Summary Table ?Stim Site NR Onset (ms) Norm Onset (ms) O-P Amp (mV) Norm O-P Amp iAmp (mV) Amp (1st) (%) Site1 Site2 Delta-0 (ms) Dist (cm) Kirill (m/s) Norm Kirill (m/s) Right Peroneal Motor (Ext Dig Brev) Ankle ? 7.7 <4.0 0.8 >2.5 0.7 100.0 Ankle Ext Dig Brev 7.7 0.0 B Fib ? 20.7 0.7 0.8 87.5 B Fib Ankle 13.0 32.5 25 >40 Poplt ? 22.6 0.8 0.8 100.0 Poplt B Fib 1.9 6.0 32 >40 Left Peroneal TA Motor (Tib Ant) Fib Head ? 4.7 <4.2 3.1 3.6 100.0 Fib Head Tib Ant 4.7 0.0 Poplit ? 5.8 <5.7 3.1 3.6 100.0 Poplit Fib Head 1.1 4.0 36 >40.5 Left Tibial Motor (Abd Hinton Brev) Ankle ? 5.8 <5 0.4 >2.5 0.5 100.0 Ankle Abd Hinton Brev 5.8 0.0 Knee ? 16.2 0.4 0.4 100.0 Knee Ankle 10.4 42.0 40 >40 Right Tibial Motor (Abd Hinton Brev) Ankle ? 4.2 <5 2.5 >2.5 2.5 100.0 Ankle Abd Hinton Brev 4.2 0.0 Knee ? 19.4 1.3 1.4 52.0 Knee Ankle 15.2 42.0 28 >40 EMG ?Side Muscle Nerve Root Ins Act Fibs Psw Amp Dur Poly Recrt Int Pat Comment Right AbdHallucis MedPlantar S1-2 Incr 1+ 1+ Nml Nml 0 Nml Complete Right AntTibialis Dp Br Peron L4-5 Nml Nml Nml Nml Nml 0 Nml Complete Right PostTibialis Tibial L5, S1 Nml Nml Nml Nml Nml 0 Nml Complete Right MedGastroc Tibial S1-2 Nml Nml Nml Nml Nml 0 Nml Complete Right VastusMed Femoral L2-4 Nml Nml Nml Nml Nml 0 Nml Complete Left AbdHallucis MedPlantar S1-2 Incr 1+ 1+ Nml Nml 0 Nml Complete Left AntTibialis Dp Br Peron L4-5 Incr 1+ 1+ Nml Nml 0 Nml Complete Left MedGastroc Tibial S1-2 Incr 1+ 1+ Nml Nml 0 Nml Complete Left VastusMed Femoral L2-4 Nml Nml Nml Nml Nml 0 Nml Complete Left ExtHallLong Dp Br Peron L5, S1 Incr 1+ 1+ Nml Nml 0 Nml Complete Left Peroneus Long Sup Br Peron L5-S1 Incr 1+ 1+ Nml Nml 0 Nml Complete Paraspinal EMG ?Side Muscle Nerve Root Ins Act Fibs Psw Comment Right Lumbar Upper Rami Nml Nml Nml Right Lumbar Mid Rami Nml Nml Nml Right Lumbar Lower Rami Nml Nml Nml Left Lumbar Upper Rami Nml Nml Nml Left Lumbar Mid Rami Nml Nml Nml Left Lumbar Lower Rami Nml Nml Nml FINDINGS: Left EDB was very flat so I went ahead testing peroneal nerve while recording TA instead. This showed prolonged distal latency, normal amplitude and slow conduction velocity across fibular neck. Left tibial nerve showed very small/almost absent amplitudes. Right peroneal nerve showed very small/almost absent amplitudes. Right tibial nerve showed normal distal latency, normal amplitude and slow conduction velocity. Bilateral sural nerves showed absent response. Concentric needle EMG was performed in selected muscles of the bilateral lower extremity and lumbar paraspinals. Study revealed signs of electric abnormalities as shown in the table above. Left TA, EHL and peroneus longus showed increased insertional activity, PSWs and fibrillations. Left medial gastrocnemius showed increased insertional activity, PSWs, fibrillations and CRDs. Bilateral AH showed increased insertional activity, PSWs and fibrillations. IMPRESSION: 1. This is an abnormal study. 2. 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 3. There is no electrodiagnostic evidence for lumbosacral plexopathy or lumbar radiculopathy. CLINICAL COMMENT: Consider AFO for left foot drop. Thank you for your kind referral. Dorina Pederson MD, KT Board Certified, [place] [employer] and [employer] (ABPMR) Board Certified, [place] Board [employer] Electrodiagnostic [employer] (ABEM) CODIN [id number] x 2 MTDD
--- OUTSIDE RECORDS SUMMARY | 2024-12-24 16:57 | XMS_ITS | Data Portability ---
Author Organization Pending sale to [facility], [facility] Address [address] [place] [address] Assessment Encounter Date Assessment Date Assessment LastModified by Organization Details LastModified Time 07/21/2020 07/21/2020 #1 adult health examination. Needs DTaP #2 hyperlipidemia. Low HDL high triglyceride metabolic plan likely will need low-dose atorvastatin. #3 diabetes type 2. Check A1c microalbumin. Wants to do vigorous exercise and further weight reduction as therapy prior to pills #4 obstructive sleep apnea. Symptomatically improved . Observe for now and nguyen Not available 07/21/2020 11:21:08 09/20/2021 09/20/2021 #1 adult health exam. Check lipids. Refuses all immunizations. Apparently work requires nicotine screening #2 hypertension persistent diastolic hypertension. Plan check lab. Prefers to work on continued weight loss #3 diabetes mellitus check A1c #4hyperlipidemia check labs #5 obstructive sleep apnea might consider repeat sleep study #6 nausea.Episodic episodes of unclear etiology. Question some sort of neuro endocrine episode. ? vasomotor He will try to keep track of associated symptoms and timing [email or web address] Not available 09/20/2021 14:57:52 Plan of Treatment Reminders Order Date Submit Date Provider Last Modified By Organization Details Last Modified Time Details Appointments None recorded. Lab HbA1c (hemoglob in A1c), blood 2019 020 [facility] ([facility]), [address] [place], [address], 0 11:15:17 CMP, serum or plasma 2019 020 [facility] ([facility]), [address], [place], [address], 0 11:15:17 CBC w/ auto diff 2019 [facility] ([facility]), [address], [place], [address], 0 11:15:17 microalbu min, urine 2019 [facility] ([facility]), [address], [place], [address], 0 11:15:17 lipid panel, serum 2019 [facility] ([facility]), [address], [place], [address], 0 11:15:17 HbA1c (hemoglob in A1c), blood 2020 [facility] ([facility]), [address], [place], [address], 10:05:18 CMP, serum or plasma 2020 [facility] ([facility]), [address], [place], [address], 10:05:18 urinalysi s, complete 2020 [facility] ([facility]), [address], [place], [address], 10:05:18 microalbu min, urine 2020 [facility] ([facility]), [address], [place], [address], 10:05:18 CBC w/ auto diff 2020 [facility] ([facility]), [address], [place], [address], 10:05:18 TSH, serum or plasma 2020 [facility] ([facility]), [address], [place], [address], 10:05:18 nicotine and metabolit es, qualitati ve, serum 2020 [facility] ([facility]), [address], [place], [address], 10:05:18 lipid panel, serum 2020 [facility] ([facility]), [address], [place], [address], 10:05:18 Referral None recorded. Procedures None recorded. Surgeries None recorded. Imaging None recorded. Medication Orders None recorded. Patient TargetsNo targets recorded. Patient Instructions Encounter Date Encounter Id Patient Instructions Last Modified By Organization Details Last Modified Time 07/21/2020 [id number] When You Want to Lose Weight: Care Instructions [email or web address] Not available 07/21/2020 10:10:24 sleep apnea: car e instructions [email or web address] Not available 07/21/2020 10:10:24 type 2 diabetes: care instructions [email or web address] Not available 07/21/2020 10:10:24 high cholesterol : care instructions [email or web address] Not available 07/21/2020 10:10:24 09/20/2021 [id number] sleep apnea: car e instructions [email or web address] Not available 09/20/2021 14:48:05 learning about type 2 diabetes [email or web address] Not available 09/20/2021 14:41:58 type 2 diabetes: care instructions [email or web address] Not available 09/20/2021 14:41:59 high cholesterol : care instructions [email or web address] Not available 09/20/2021 14:41:59 Reason for Referral None Reported. Results Created Date Observation Date Name Description Value Unit Range Abnormal Flag Note LastModifiedBy Organization Detail LastModifiedTime 10/31/20 21 11/01/2021 NOVEL CORON AVIRU S (COVI D19), SAJI sars cov2, SAJI Detect ed nd Refer ence range : Not Detec esperanza (NOTE ) Clien t Reque sted Flag Patie nts who have a posit cheryl COVID -19 test resul t may now have treat ment optio ns. Treat ment optio ns are avail able for patie nts with mild to moder ate sympt oms and for hospi taliz ed patie nts. Visit our websi te at [email or web address] :[email or web address] 9 for resou rces and infor arlene zamora. This nucle ic acid ampli ficat ion test was devel oped and its perfo rmanc e amrik cteri stics deter mined by [employer] at[employer] es. Nucle ic acid ampli ficat ion tests inclu de RT-PC R and TMA. This test has not been FDA clear ed or appro jadiel. This test has been autho rized by FDA under an Emerg ency Use Autho rizat ion (EUA) . This test is only autho rized for the durat ion of time the decla ratio n that circu mstan margarita exist justi fying the autho rizat ion of the emerg ency use of in vitro diagn ostic tests for detec tion of SARS- CoV-2 virus and/o r diagn osis of COVID -19 infec tion under secti on 564(b )(1) of the Act, 21 U.S.C . 360bb b-3(b ) (1), unles s the autho rizat ion is termi nated or revok ed soone r. When diagn ostic testi ng is negat cheryl, the possi bilit y of a false negat cheryl resul t shoul d be consi dered in the diomedes xt of a patie nt's recen t expos ures and the prese nce of clini dora signs and sympt oms consi stent with COVID -19. An indiv idual witho ut sympt oms of COVID - 19 and who is not latisha ing SARS- CoV-2 virus would expec t to have a negat chreyl (not detec esperanza) resul t in this assay . Perfo rmed At: [facility] [place] [address] [place] [address] Joss Tenzin Gaona MD Ph:[phone] Not Available [facility] ([facility]) [address] [place] [address], [address], 11/01/2021 15:09:09 Result Notes None recorded. Problems Name Problem SNOMED Code Status Onset Date Resolution Date Notes Provider Name and Address Organization Details Recorded Time Obesity 627361993 Active 2019 250 EDMOND PEREZ MD [address], [place], [address], [facility] 0 10:00:53 Type 2 diabetes mellitus 54260087 Active 2019 EDMOND PEREZ MD [address], [place], [place], [facility] 0 09:57:17 Hyperlipide jacinto 61082789 Active 2019 EDMOND PEREZ MD [address], [place], [place], [facility] 0 09:57:27 Obstructive sleep apnea syndrome 88694915 Active 2019 sleep study EDMOND PEREZ MD [address], [place], [place], [facility] 0 10:00:12 Increased blood pressure 65488608 Active 2020 YADI FLOWERS null, Pending sale to [facility] 14:23:17 Nausea 343395265 Active 2020 episodes with overheat and flush EDMOND PEREZ MD [address], [place], [place], [facility] 1 14:32:09 Problem Notes None recorded. Medical Equipment None Reported. Allergies No known drug allergies Medications Not known to be on any medication Vitals Date Recorded Body weight Provider Name an d Address Organization Details Last Updated DateTime 07/21/[address] [place] [facility] 07/21/2020 09:43:44 Date Recorded Heart rate Provider Name an d Address Organization Details Last Updated DateTime 07/21/2020 105 /min Britney [address]cl[address] [place] [facility] 07/21/2020 09:49:36 Date Recorded Respiratory rate Provider Name a nd Address Organization Details Last Updated DateTime 07/21/2020 16 /min Britney [address] [place] [facility] 07/21/2020 09:49:38 Date Recorded Oxygen saturation Oxygen saturation in Arterial blood by Pulse oximetry Provider Name and Address Organization Details Last Updated DateTime 07/21/2020 98 % 98 % Britney Barclay [place] [facility] 07/21/2020 09:49:42 Date Recorded Pain severity - 0-10 verbal numeric rating [Score] - Reported Provider Name and Address Organization Details Last Updated DateTime 07/21/[address] [facility] 07/21/2020 09:49:46 Date Recorded Body height Provider Name an d Address Organization Details Last Updated DateTime 09/20/[address] - [facility] 09/20/2021 14:13:07 Date Recorded Body mass index (BMI) Body weight Provider Name and Address Organization Details Last Updated DateTime 09/20/2021 33.2 kg/m2 [address]76.[address] [facility] 09/20/2021 14:13:16 Date Recorded Heart rate Provider Name an d Address Organization Details Last Updated DateTime 09/20/2021 103 /min YAD[address] [place] [facility] 09/20/2021 14:15:41 Date Recorded Oxygen saturation Oxygen saturation in Arterial blood by Pulse oximetry Provider Name and Address Organization Details Last Updated DateTime 09/20/2021 98 % 98 % YADI [address] [place] [facility] 09/20/2021 14:15:45 Date Recorded Systolic blood pressure Diastolic blood pressure Provider Name and Address Organization Details Last Updated DateTime 07/21/2020 140 mm[Hg] 98 mm[Hg] Britney Barclay [place] - [facility] 07/21/2020 09:49:31 Date Recorded Systolic blood pressure Diastolic blood pressure Provider Name and Address Organization Details Last Updated DateTime 09/20/2021 136 mm[Hg] 102 mm[Hg] YADI FLOWERS [place] [facility] 09/20/2021 14:15:04 Social History Question Answer Notes LastModified by [employer] Details LastModified Time Tobacco Smoking Status Former Smoker Britney Barclay null, [place] [facility] 07/21/2020 09:45:44 What Is Your Level Of Alcohol Consumption? None Information not available 09/20/2021 What Is Your Level Of Caffeine Consumption? None Information not available 09/20/2021 Are You Currently Employed? Yes [employer] Information not available 09/20/2021 What Type Of Diet Are You Following? REGULAR Information not available 09/20/2021 What Is The Highest Grade Or Level Of School You Have Completed Or The Highest Degree You Have Received? [id number] Information not available 09/20/2021 Who Is Your Employer? 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 No Information not available 09/20/2021 How Many Years Have You Smoked Tobacco? 2 Quit 10 Yrs Ago kbolanis Information not available 07/21/2020 Sex: Unknown Functional Status Question Answer Note LastModified by [employer] Details LastModified Time What is your exercise level? Occasional plays basketball once or twice a week Information not available 09/20/2021 Mental Status None recorded. Family History Relationship Description Onset Age of this Age Resolved Age Notes LastModified by Organization Details LastModified Time Father Impaired fasting glycemia [email or web address] Not available 2019 14:32:35 Father Cardiomyopat hy ckrupa Not available 2019 14:32:48 Mother Impaired fasting glycemia ckrupa Not available 2019 14:32:35 Medical History Condition Response Allergic or Immunologic Disorders N Breast N Psychiatric N Blood Disorders N Behavioral Problems N Anesthesia Complications N Skin N Pulmonary N Cancer: What kind? N Past Encounters Encounter ID Performer Location Encounter Start Date Encounter Closed Date Diagnosis/Indication Diagnosis SNOMED-CT Code Diagnosis ICD10 Code Diagnosis Note [id number] EDMOND PEREZ MD _[facility] [address] [address] 07/21/2020 09:35:36 07/21/2020 10:26:10 Adult health examination 302202872 Z00.00 Hyperlipidemia 39553372 E78.5 Obesity 921638904 E66.9 Obstructiv e sleep apnea syndrome 87545483 G47.33 Type 2 jennifer betes mellitus without complication 931590584 E11.9 [id number] EDMOND PEREZ MD [address] [address] 09/20/2021 14:04:21 09/20/2021 14:57:54 Adult health examination 535258529 Z00.00 Increased blood pressure 81237782 R03.0 Hyperlipidemia 55979508 E78.5 Type 2 jennifer betes mellitus 61402363 E11.9 Obstructiv e sleep apnea syndrome 21821707 G47.33 Health Concerns Section Related Observation LastModified by Organization Detai ls LastModified Time None Recorded Concern Status LastModified by Organization Details LastModified Time None Recorded Advance Directives Directive None Recorded Payers Encounter Date Sequence Insurance Name Policy Number Policy Cisneros Covered Member ID Cisneros Member ID Guarantor Name 07/21/2020 1 [facility] [id number] Mega Jason Gravel [id number] [employer] 09/20/2021 1 [facility] [id number] Mega G Gravel [id number] Mega [employer] Notes Date Note Type Note Provider Name and Address Organization Details Recorded Time 07/21/2020 text/html comprehensive history and physical. Problem list was created. Old records are reviewed. History of obstructive sleep apnea with CPAP. sleep study 2009.Lost 35 pounds. Subjective resolution of symptoms. No CPAP use recently. History of type 2 diabetes. Responded to weight loss. Possible adverse effect from metformin with abdominal discomfort. Discontinued. No treatment or monitoring recently. Has a new baby. Moderately good diet. Weight stable. Maximum weight 255 pounds EDMOND PEREZ MD [address] [place] [address], [place], [address], - [facility] 07/21/2020 11:21:33 09/20/2021 text/html comprehensive history and physical. Has lost 10 pounds. Exercises. He is able to tolerate full court basketball. Never went for lab. Has had episodes of acute nausea associated with feeling hot and and ill and having to lie down. 15 minutes. Not sure if he is flushed or hyperhidrosis. No vomiting. No diarrhea. Previous history of diabetes with adverse effect and metformin. Obstructive apnea and snoring is much improved. Does not use CPAP EDMOND PEREZ MD [address], [place], [address], [facility] 09/20/2021 14:58:04
--- OUTSIDE RECORDS SUMMARY | 2024-12-24 16:57 | XMS_ITS | Clinical Summary ---
Author Organization [facility] Address [address] [place] [address] Phone Care Team Providers Care Landscaping Specialist Name Role Phone Wendy Bhandari MD Primary Care Provider Allergies No known active allergies Medications Medication Sig Dispensed Refills Start Date End Date Status blood-glucose meter misc Use to check sugars once daily. 4 Active ONETOUCH DELICA LANCETS MISC Use to check sugars once daily 4 Active glucose blood test strip Use to test sugars once daily 4 Active metFORMIN (GLUCOPHAGE) 1,000 mg tabletIndications:Obe sity, unspecified,Type 2 diabetes mellitus with hyperglycemia (CMS/HCC) TAKE 1 TABLET DAILY FOR 1 WEEK THEN INCREASE TO 1 TABLET TWICE A DAY 180 tablet 4 Active lisinopriL (PRINIVIL,ZESTRIL) 5 mg tabletIndications:Ivett vated blood-pressure reading, without diagnosis of hypertension,Proteinu rolando, unspecified TAKE 1 TABLET BY MOUTH EVERY DAY 90 tablet 4 Active apixaban (Eliquis) 5 mg tablet Take 1 tablet (5 mg total) by mouth 2 (two) times a day. 60 each 2 5 025 Active fenofibrate (TRICOR) 48 mg tabletIndications:Pur e hyperglyceridemia TAKE 1 TABLET BY MOUTH EVERY DAY 90 tablet 5 Active fenofibrate (TRICOR) 48 mg tablet Take 1 tablet (48 mg total) by mouth 1 (one) time each day. 4 025 Discontinued apixaban (Eliquis) 5 mg tablet Take 1 Tablet by mouth 2 times daily. Dx DVT left leg 08/21/24 4 025 Discontinued(Re order) Encounters Date Type Department Care Team Description 12/08/2024 Telephone [facility] Hematology Oncology [address] [place] [address] Purvi Gutierrez PA Advice Only 11/20/2024 4:29 PM EST - 11/20/2024 11:59 PM EST Hospital Encounter [facility] MRI [address] [place] [address] Pain Discharge Disposition: Home or Self Care 11/04/2024 Telephone [facility] Hematology Oncology [address] [place] [address] Purvi Gutierrez PA 11/04/2024 Telephone [facility] Hematology Oncology [address] [place] [address] Purvi Gutierrez PA 09/25/2024 7:45 AM EDT - 09/25/2024 11:59 PM EDT Hospital Encounter [facility] CT Scan [address] [place] [address] Purvi Gutierrez PA Discharge Disposition: Home or Self Care 09/24/2024 11:09 AM EDT Hospital Encounter TH HISTORIC ENCOUNTERS EASTERN CONVERSION ONLY Annelise Lundberg, DO Purvi Gutierrez PA from Last 3 Months Surgical History Surgery Date Site/Laterality Comments OTHER SURGICAL HISTORY PROCEDURE: DENIES PREVIOUS SURGERY Family History Medical History Relation Name Comments Diabetes Father Hypertension Father Diabetes Mother Diabetes Paternal Grandmother Relation Name Status Comments Father Alive Maternal Grandfather Maternal Grandmother Mother Alive Paternal Grandfather Paternal Grandmother Sister Alive Social History Tobacco Use Types Packs/Day Years Used Date Smoking Tobacco: Never Smokeless Tobacco: Never Alcohol Use Standard Drinks/Week Comments Never 0 (1 standard drink = 0.6 oz pur e alcohol) Sex and Gender Information Value Date Recorded Sex Assigned at Not on file Gender Identity Not on file Sexual Orientation Not on file Job Start Date Occupation Industry Not on file Not on file Not on file Obstetrics History Last Filed Vital Signs Vital Sign Reading [...] Mass Index 31.69 09/24/2024 11:19 AM EDT Plan of Treatment Upcoming Encounters Date Type Department Care Team (Late st Contact Info) Description 03/09/2025 3:15 PM EDT Office Visit [facility] Hematology Oncology [address] [place] [phone] Purvi Gutierrez PA [address] [place] [address] Health Maintenance Due Date Last Done Comments Pneumococcal Vaccine: Pediatrics (0 to 5 Years) and At-Risk Patients (6 to 64 Years) (1 of 2 - PCV) 1986 Diabetes: Annual Foot Exam 1990 Diabetes: Annual Retina Eye Exam 1990 DTaP,Tdap,and Td Vaccines (1 - Tdap) 1999 Hepatitis B Vaccines (1 of 3 - 19+ 3-dose series) 1999 Depression Screening 12/21/2023 HIV Screening 12/21/2023 Hepatitis C Screening 12/21/2023 Social Influencers of Health Screening 12/21/2023 COVID-19 Vaccine ( - season) 2024 Influenza Vaccine (#1) 2024 Diabetes: Blood Sugar Control Test (HGBA1C) 03/05/2025 09/04/2024, 09/04/2024 Diabetes: Annual Urine Albumin-Creatinine Ratio (uACR) 08/15/2025 08/15/2024 Diabetes: Annual GFR (Glomerular Filtration Rate) 09/04/2025 09/04/2024, 09/04/2024, 08/15/2024 Cholesterol Screening (Lipid Panel) 09/04/2029 09/04/2024, 09/04/2024, 09/04/2024, Additional history exists HIB Vaccines Aged Out No longer eligi ble based on patient's age to complete this topic HPV Vaccines Aged Out No longer eligi ble based on patient's age to complete this topic Hepatitis A Vaccines Aged Out No long er eligible based on patient's age to complete this topic IPV Vaccines Aged Out No longer eligi ble based on patient's age to complete this topic MMR Vaccines Aged Out No longer eligi ble based on patient's age to complete this topic Meningococcal ACWY Vaccine Aged Out N o longer eligible based on patient's age to complete this topic RSV Immunization Patients Under 20 months Aged Out No longer eligible based on patient's age to complete this topic Varicella Vaccines Aged Out No longer eligible based on patient's age to complete this topic Procedures Procedure Name Priority Date/Time Associated Diagnosis Comments EXTERNAL ULTRASOUND REPORT 11/21/2024 MR ANKLE WO CONTRAST LEFT Routine 11/20/2024 5:[address] CHEST ANGIOGRAPHY Routine 09/25/2024 8:28 AM EDT ANNUAL BMP BLOOD TEST Routine 09/04/2024 HEMOGLOBIN A1C Routine 09/04/2024 LIPID PANEL Routine 09/04/2024 URINE ALBUMIN CREATININE RATIO Routine 08/15/2024 from Last 3 Months or Most Recently Relevant to Health Maintenance Results * External Ultrasound Report (11/21/2024) Anatomical Region Laterality Modality Ultrasound Provider [facility] US PROCEDURE S * MR Ankle wo Contrast Left (11/20/2024 5:53 PM EST) Anatomical Region Laterality Modality Lower Extremities, Ankle Left Magneti c Resonance 11/21/2024 2:26 PM EST Impressions 11/21/2024 2:43 PM EST 1. ??The ligaments and tendons of the ankle appear normal. 2. ??Edema in the posterior soft tissues of the lower leg, including the visible portions of the soleus. ??There is prominent fatty atrophy of the visible portions of the lateral soleus muscle belly. ??The findings could be secondary to denervation atrophy. ??They are incompletely included in the [id number]. ??Consider further evaluation with dedicated MRI of the calf. -------- FINAL REPORT -------- Dictated By: Roshan Pérez Dictated Date: 11/21/2024 14:26 ET Assigned Physician: Roshan Pérez Reviewed and Electronically Signed By: Roshan Pérez Signed Date: 11/21/2024 14:43 ET Workstation ID: [id number] Transcribed By: Self Edit Transcribed Date: 11/21/2024 14:39 ET Narrative 11/21/2024 2:43 PM EST MRI of the left ankle, 11/21/2024 2:26 PM. HISTORY: Pain. ??Inability to plantarflex the hallux against resistance. COMPARISON: None. TECHNIQUE: Multiplanar multisequence MRI of the left ankle without intravenous contrast administration. FINDINGS: Tendons: The Achilles tendon is normal in caliber, contour, and signal. ??The peroneal tendons are normal. ??The medial flexor tendons are normal. ??The extensor tendons are normal. Ligaments: The anterior and posterior tibiofibular and talofibular ligaments are normal. ??Calcaneofibular ligament is normal. ??Deltoid complex and spring ligaments are normal. Plantar fascia: Normal. Bones: No marrow signal abnormality. ??Mild degenerative changes of the mid and hindfoot. Soft tissues: There is edema in the posterior soft tissues, most evident at the level of the Kager's fat pad and in the visible portions of the inferior soleus muscle belly. ??Prominent fatty atrophy of the visible portion of the lateral soleus muscle. Procedure Note Roshan Pérez MD - 11/21/2024 MRI of the left ankle, 11/21/2024 2:26 PM. HISTORY: Pain. Inability to plantarflex the hallux against resistance. COMPARISON: None. TECHNIQUE: Multiplanar multisequence MRI of the left ankle withoutintravenous contrast administration. FINDINGS: Tendons: The Achilles tendon is normal in caliber, contour, and signal.The peroneal tendons are normal. The medial flexor tendons are normal.The extensor tendons are normal. Ligaments: The anterior and posterior tibiofibular and talofibularligaments are normal. Calcaneofibular ligament is normal. Deltoidcomplex and spring ligaments are normal. Plantar fascia: Normal. Bones: No marrow signal abnormality. Mild degenerative changes of the midand hindfoot. Soft tissues: There is edema in the posterior soft tissues, most evidentat the level of the Kager's fat pad and in the visible portions of theinferior soleus muscle belly. Prominent fatty atrophy of the visibleportion of the lateral soleus muscle. IMPRESSION: 1. The ligaments and tendons of the ankle appear normal. 2. Edema in the posterior soft tissues of the lower leg, including thevisible portions of the soleus. There is prominent fatty atrophy of thevisible portions of the lateral soleus muscle belly. The findings couldbe secondary to denervation atrophy. They are incompletely included inthe [id number]. Consider further evaluation with dedicated MRI of thecalf. -------- FINAL REPORT -------- Dictated By: Roshan Pérez Dictated Date: 11/21/2024 14:26 ET Assigned Physician: Roshan Pérez Reviewed and Electronically Signed By: Roshan Pérez Signed Date: 11/21/2024 14:43 ET Workstation ID: [id number] Transcribed By: Self Edit Transcribed Date: 11/21/2024 14:39 ET Ozzie Aguirre DPM IMG MRI PROCED URES * CT CHEST ANGIOGRAPHY (09/25/2024 8:28 AM EDT) Anatomical Region Laterality Modality Computed Tomogra phy 09/25/2024 7:48 AM EDT Narrative 09/25/2024 8:28 AM EDT [facility] Diagnostic Imaging Department [address] [place] [address] Patient: ??MEGA TREJO ?/Age/Sex: 1980 - 44 - M Unit#: ??[id number] ? Location/Status: ??SPDICAT/REG CLI ? Mnemonic/Ordering Site: ??CTACHEST/SPCT Ordering Physician: ??PURVI GUTIERREZ CT Chest Angiography - 09/25/24 - 0756 Report Status:Signed EXAMINATION: CTA chest. CLINICAL INDICATIONS: SOB known DVT. COMPARISON: None. TECHNIQUE: 2.5 mm thin axial and reformatted 3 mm thin coronal and sagittal images of chest were obtained following rapid IV 95 mL Isovue-370. Scanner: [employer] 64 slice VCT Dose reduction technique: ASIR (Adaptive statistical iterative reconstruction) and/or AEC (automated exposure control) Dose: total exam DLP 1290 mGy/cm FINDINGS: Vascular: There is good opacification of the artery and its branches without any intraluminal defect or narrowing. The thoracic aorta is of normal caliber there is a normal three-vessel branching of the aortic arch. Nonvascular: The thyroid lobes are symmetrical and normal. The central trachea and the bronchi are widely patent. Heart size size is normal. The great vessels are normal caliber. There is no pericardial effusion. The lungs are well- expanded and clear. No pulmonary nodule, mass or consolidation seen. There is no pleural effusion or thickening. The axilla and chest wall is unremarkable. There is diffuse attenuation of liver without any focal lesions. No gallstones seen. Spleen, adrenal glands and the pancreas is grossly unremarkable. The bony thorax is grossly unremarkable. IMPRESSION: No evidence PE. No evidence of aortic aneurysm or dissection. Dictating Physician: ??GUILLE CABRERA Electronically Signed by: ??GUILLE CABRERA Dic Date/Time: ??09/25/24821 Sign date/Time: ??09/25/24827 Procedure Note Guille Cabrera MD - 09/27/2024 [facility] Diagnostic Imaging Department [address] [place] [id number] Patient: MEGA TREJO /Age/Sex: 1980 - 44 - M Unit#: [id number] Location/Status: [facility] Mnemonic/Ordering Site: CTACHEST/SPCT Ordering Physician: PURVI GUTIERREZ CT Chest Angiography - 09/25/24 - 0756 Report Status:Signed EXAMINATION: CTA chest. CLINICAL INDICATIONS: SOB known DVT. COMPARISON: None. TECHNIQUE: 2.5 mm thin axial and reformatted 3 mm thin coronal andsagittal images of chest were obtained following rapid IV 95 mL Isovue-370.Scanner: [employer] 64 slice VCT Dose reduction technique: ASIR (Adaptive statistical iterativereconstruction) and/or AEC (automated exposure control) Dose: total exam DLP 1290 mGy/cm FINDINGS: Vascular: There is good opacification of the artery and itsbranches without any intraluminal defect or narrowing. The thoracic aorta is ofnormal caliber there is a normal three-vessel branching of the aortic arch. Nonvascular: The thyroid lobes are symmetrical and normal. The centraltrachea and the bronchi are widely patent. Heart size size is normal. The greatvessels are normal caliber. There is no pericardial effusion. The lungs arewell- expanded and clear. No pulmonary nodule, mass or consolidation seen. Thereis no pleural effusion or thickening. The axilla and chest wall is unremarkable. There is diffuse attenuationof liver without any focal lesions. No gallstones seen. Spleen, adrenalglands and the pancreas is grossly unremarkable. The bony thorax is grosslyunremarkable. IMPRESSION: No evidence PE. No evidence of aortic aneurysm ordissection. Dictating Physician: GUILLE CABRERA Electronically Signed by: GUILLE CABRERA Dic Date/Time: 09/25/24821 Sign date/Time: 09/25/[address] PROCEDURES * Annual BMP Blood Test (09/04/2024) [facility] Annual BMP Blood Test abstracted Historical Provider MD AAMIR CABRERA E * (ABNORMAL) Hemoglobin A1c (09/04/2024) [facility] Hemoglobin A1C 9.7(A) 6.5 % Blood Venous blood specimen / Unknown Historical Provider LAB BLOOD ORDERAB LES * (ABNORMAL) Lipid panel (09/04/2024) [facility] LDL/HDL Ratio 8(A) 0 - 4 Triglycerides 569(A) 0 - 150 mg/dL Cholesterol 219(A) 0 - 200 mg/dL HDL 28(A) 40 mg/dL Blood Venous blood specimen / Unknown Historical Provider LAB BLOOD ORDERAB LES * Urine Albumin Creatinine Ratio (08/15/2024) [facility] Urine Albumin Creatinine Ratio abstracted Historical Provider MD AAMIR Faustin from Last 3 Months or Most Recently Relevant to Health Maintenance Care Teams Landscaping Specialist Relationship Specialty Start Date End Date Wendy Bhandari MD [address] [place] [address] PCP - General 09/08/24
--- OUTSIDE RECORDS SUMMARY | 2024-12-24 16:57 | XMS_ITS | Encounter Summary ---
Author Organization [facility] Address [address] [place] [address] Care Team Providers Care Process Coach Name Role Phone Wendy Bhandari MD Primary Care Provider Encounter Details Date Type Department Care Team (Late st Contact Info) Description 09/24/2024 11:09 AM EDT Hospital Encounter TH HISTORIC ENCOUNTERS EASTERN CONVERSION ONLY Annelise Lundberg, DO [address] [place] [address] Karolina Mayer PA [address] [place] [address] Social History Tobacco Use Types Packs/Day Years Used Date Smoking Tobacco: Never Assessed Sex and Gender Information Value Date Recorded Sex Assigned at Not on file Gender Identity Not on file Sexual Orientation Not on file Job Start Date Occupation Industry Not on file Not on file Not on file documented as of this [...] Mayer PA-C Service: -- Author Type: Physician Recruiter Account Manager Filed: 09/24/2024 4:16 PM Encounter Date: 09/24/2024 Status: Signed Clinical Documentation Spec: Karolina Mayer PA-C (Physician Recruiter Account Manager) Cosigner: Annelise Lundberg DO at 09/24/2024 9:23 [...] his and kids. 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 [...] Bhandari* Sign: Karolina Mayer PA-C Hematology/Oncology [facility] [phone] documented in this encounter Plan of Treatment Upcoming Encounters Date Type Department Care Team (Late st Contact Info) Description 03/09/2025 3:15 PM EDT Office Visit [facility] Hematology Oncology [address] [place] [address] Karolina Mayer PA [address] [place] [address] documented as of this encounter Visit Diagnoses Not on filedocumented in this encounter Care Teams Process Coach Relationship Specialty Start Date End Date Wendy Bhandari MD [address] [place] [id number] PCP - General 09/08/24 documented as of this encounter
--- OUTSIDE RECORDS SUMMARY | 2024-12-24 16:57 | XMS_ITS | Clinical Summary ---
Author Organization [facility] Address [address] [place] [address] Care Team Providers Care Bottling Machine Operator Name Role Phone Wendy Bhandari MD Primary Care Provider Allergies No known active allergies Medications Medication Sig Dispensed Refills Start Date End Date Status metFORMIN (GLUCOPHAGE) tablet 1000 mg Take 1 tablet (1,000 mg total) by mouth 2 (two) times a day with meals. 0 Active furosemide (LASIX) 20 MG tablet Take 1 tablet (20 mg total) by mouth daily. 0 Active Encounters Date Type Department Care Team Description 09/24/2024 11:00 AM EDT Follow-Up [facility] Oncology Services [address] [place] [address] Karolina Mayer PA-C Chest pain, unspecified type (Primary Dx); Acute deep vein thrombosis (DVT) (HCC) 09/24/2024 Travel from Last 3 Months Social History Tobacco Use Types Packs/Day Years Used Date Smoking Tobacco: Former Cigarettes Smokeless Tobacco: Never Tobacco Cessation:Counseling Given: Not Answered Comments:Quit smoking 15 yrs ago. Alcohol Use Standard Drinks/Week Comments Not Currently 0 (1 standard drink = 0.6 oz pur e alcohol) Sex and Gender Information Value Date Recorded Sex Assigned at Not on file Gender Identity Not on file Sexual Orientation Not on file Job Start Date Occupation Industry Not on file Not on file Not on file Last Filed Vital Signs Vital Sign Reading Time Taken Comments Blood Pressure 149/95 09/24/2024 11:19 AM EDT Pulse 109 09/24/2024 11:19 AM EDT Temperature 36.6 ??C (97.8 ??F) 09/24/2024 11:19 AM E DT Respiratory Rate - - Oxygen Saturation 97% 09/24/2024 11:19 AM EDT Inhaled Oxygen Concentration - - Weight 94.5 kg (208 lb 6.4 oz) 09/24/2024 11:19 AM EDT Height 172.7 cm (5' 8 ) 09/24/2024 11:19 AM EDT Body Mass Index 31.69 09/24/2024 11:19 AM EDT Plan of Treatment Health Maintenance Due Date Last Done Comments Hepatitis B Vaccines (1 of 3 - 3-dose series) 1980 Hepatitis C Screening 1980 COVID-19 Vaccine (#1) 01/14/1981 Depression Screening 1992 Preventative Health Evaluation 1998 DTap / Tdap / Td (1 - Tdap) 1999 Influenza Vaccine (#1) 2024 Pneumococcal Vaccine Aged Out No long er eligible based on patient's age to complete this topic RSV Ped < 20 months Aged Out No longe r eligible based on patient's age to complete this topic Care Teams Bottling Machine Operator Relationship Specialty Start Date End Date Wendy Bhandari MD [address] [place] [address] PCP - General Family Medicine 08/26/24
--- OUTSIDE RECORDS SUMMARY | 2024-12-24 16:57 | XMS_ITS | Encounter Summary ---
Author Organization [facility] Address [address] [place] [address] Care Team Providers Care Site Surveyor Name Role Phone Wendy Bhandari MD Primary Care Provider Reason for Visit * Reason Onset Date Comments Advice Only 12/08/2024 Encounter Details Date Type Department Care Team (Late st Contact Info) Description 12/08/2024 Telephone [facility] Hematology Oncology [address] [place] [address] Karolina Mayer PA [address], [place] [phone] Advice Only Social History Tobacco Use Types Packs/Day Years [...] on file documented as of this encounter Ordered Prescriptions Prescription Sig Dispensed Refills Start Date End Da te apixaban (Eliquis) 5 mg tablet Take 1 tablet (5 mg total) by mouth 2 (two) times a day. 60 each 2 12/08/2024 03/08/2025 documented in this encounter Progress Notes * Brendon Coreas MA - 12/08/2024 1:43 PM EST Office note and us scanned into the system * Mercy Boyle - 12/08/2024 1:32 PM EST Rescheduled appt w/ pt for 03/09 * Brendon Coreas MA - 12/08/2024 1:19 PM EST Called [facility] vascular office notes and US report will be faxed over. * STEVIE Pruitt - 12/08/2024 12:40 PM EST I spoke to the patient over the phone. He stopped taking Eliquis because he ran out of it, even though we had talked about continuing anticoagulation for 6 months (see TE from 11/04/24 for further details). He stopped Eliquis a couple weeks ago. He agrees to continue for another 3 more months. Extended supply sent in. Brendon, he claims that he saw a vascular doctor from [facility] and had an US there in October. Please request copy of the office visit notes and ultrasound report. Thanks! Mercy, please reschedule his follow up to 3 months from now, around the time he will be completing anticoagulation therapy. Thanks! * Mercy Boyle - 12/08/2024 11:22 AM EST Called [facility] to confirm tomorrow's appt. Asks if appt is needed? States his blood counts are good and he is not taking eliquis anymore. May be reached at [phone]. documented in this encounter Plan of Treatment Upcoming Encounters Date Type Department Care Team (Late st Contact Info) Description 03/09/2025 3:15 PM EDT Office Visit [facility] Hematology Oncology [address] [place] [phone] Karolina Mayer PA [address] [place] [address] documented as of this encounter Visit Diagnoses Not on filedocumented in this encounter Discontinued Medications Medication Sig Discontinue Reason Start Date End Da te apixaban (Eliquis) 5 mg tablet Take 1 Tablet by mouth 2 times daily. Dx DVT left leg 08/21/24 Reorder 08/26/2024 12/08/2024 documented as of this encounter Care Teams Site Surveyor Relationship Specialty Start Date End Date Wendy Bhandari MD [address] [place] [address] PCP - General 09/08/24 documented as of this encounter
== END 2024-12-24 14:46 | disposition home or self-care (01) ==
LOC: HO.NEURO 14:45
PROVIDERS: PCP Family Medicine; Visit Provider Internal Medicine
DX: G57.90 Unspecified mononeuropathy of unspecified lower limb (principal); G60.8 Other hereditary and idiopathic neuropathies
CPT/HCPCS: 95886; 95909

== ENCOUNTER → 2024-12-24 14:48 | Outpatient (BNV) | payer BC, SELFPAY | PROVIDERS: PCP Family Medicine; Visit Provider Physical Medicine & Rehabilitation | DX: G57.93 Unspecified mononeuropathy of bilateral lower limbs (principal) | CPT/HCPCS: 95886; 95909 ==

== ENCOUNTER 2025-01-01 00:07 | Emergency (ER) | payer BC, SELFPAY ==
[2025-01-01 00:13] VITALS: BP 154/100; PULSE 103; RESP 18; TEMP 36.4; O2SAT 96; BMI 33.0
[2025-01-01 00:39] LABS: MANUAL DIFF FLAG NO
[2025-01-01 00:40] LABS: Basophils Absolute Auto 0.1 X10*3/uL (0.0-0.2); Basophils Percent Auto 0.7 % (0-2); Eosinophils Absolute Auto 0.1 X10*3/uL (0.0-0.4); Eosinophils Percent Auto 1.5 % (0-4); Hematocrit 43.3 % (42.0-52.0); Hemoglobin 15.3 g/dl (14.0-18.0); Imm Gran Abs Auto 0.03 X10*3/uL (0.00-0.03); Imm Gran Pct Auto 0.4 % (0.0-0.4); Lymphocytes Absolute Auto 1.7 X10*3/uL (1.2-4.9); Lymphocytes Percent Auto 25.4 % (20-40); Mean Corpuscular HGB Conc 35.3 g/dl (31.0-36.0); Mean Corpuscular Hemoglobin 28.9 pg (27.0-33.0); Mean Corpuscular Volume 81.7 fL (80.0-98.0); Mean Platelet Volume 10.7 fL (9.4-12.4); Monocytes Absolute Auto 0.5 X10*3/uL (0.1-1.2); Monocytes Percent Auto 7.9 % (2-11); Neutrophils Absolute Auto 4.4 x10*3/uL (2.0-8.3); Neutrophils Percent Auto 64.1 % (45-73); Platelet Count 238 X10*3/uL (160-400); Red Cell Distribution Width 11.9 % (11.0-16.0); White Blood Count 6.9 X10*3/uL (4.8-10.8)
--- NOTE | 2025-01-01 00:42 | ED.EXTPRO ---
HPI - Extremity Problem General Chief complaint: Extremity Problem Stated complaint: thinks has a blood clot on right calf Time Seen by Provider: 01/01/25 00:42 Source: patient Mode of arrival: ambulatory Limitations: no limitations History of Present Illness ED Provider: HPI Narrative: Patient's history of DVT in left leg in 07/19 treated with Eliquis repeat venous Doppler in 10/19 was negative for blood clots complaining of pain in the left leg for more than 8 months been followed by neurologist and vascular today patient's saw his PCP for the 1st time was sent the patient here for Doppler to rule out DVT patient was seen here 12/13 for same venous Doppler was negative no shortness a breath no fever no skin discoloration Related Data Home Medications ?Medication ?Instructions ?Recorded ?Confirmed apixaban 5 mg tablet (Eliquis) mg PO 09/17/24 blood sugar diagnostic (OneTouch #10 ea 09/17/24 Ultra Test strips) diclofenac sodium 1 % topical gel topical 09/17/24 furosemide 20 mg tablet 20 mg PO DAILY 09/17/24 lancets 33 gauge (OneTouch Delica #100 ea 09/17/24 Plus Lancet) metformin 1,000 mg tablet 1,000 mg PO BID 09/17/24 Previous Rx's ?Medication ?Instructions ?Recorded tramadol 50 mg tablet 50 mg PO BID PRN pain #8 tabs 12/13/24 Allergies Allergy/AdvReac Type Severity Reaction Status Date / Time No Known Allergies Allergy Verified 01/01/25 00:19 Review of Systems Review of Systems: Yes all other systems are reviewed and are negative PMFSH Past Medical History Medical History (Updated 01/01/25 @ 06:16 by Landry Silva MD) DVT (deep venous thrombosis) Varicose veins of both lower extremities with inflammation Diabetes mellitus with hyperglycemia Surgical History No pertinent past surgical history Social History Social History Alcohol intake: never Patient Tobacco Use Status: Never used Tobacco Smoked in Last 30 Days: No Use of substances other than those prescribed or required for medical reasons: No Advance Directives: Yes Advance Directives Information Provided: No Advance Directives on File: No Physical Exam Vital Signs: Vital Signs: Last Vital Signs Temp 97.5 F 01/01/25 00:13 Pulse 103 H 01/01/25 00:13 Resp 18 01/01/25 00:13 BP 154/100 H 01/01/25 00:13 Pulse Ox 96 01/01/25 00:13 O2 Del Method Room Air 01/01/25 00:13 BMI result Body Mass Index 33.0 Appearance: Alert. Oriented X3. No acute distress. Eyes: PERRLA, No Nystagmus ENT: Pharynx normal. Oral Mucosa moist Neck: Normal inspection. Neck supple. CVS: Normal heart rate and rhythm. Pulses normal. Respiratory: No respiratory distress. Equal air entry bilateral, no wheezing/rales/rhonchi Abdomen: Soft and nontender. Bowel sounds are present, no mass palpable, no CVA tenderness Skin: Skin warm and dry. Normal skin color. Normal skin turgor. Extremities: 2+ lower extremity edema. No calf tenderness Homans sign negative Neuro: Oriented X 3. No motor deficit. No sensory deficit.No cerebellar signs , cranial nerves II-XII intact Medications Administered Discontinued Medications Generic Name Dose Route Start Last Admin Trade Name Freq PRN Reason Stop Dose Admin Morphine Sulfate 15 mg 01/01/25 00:51 01/01/25 00:55 Morphine Sulfate Immed Release 15 Mg Tablet PO 01/01/25 00:52 15 mg ONCE ONE Administration Medical Decision Making Medical Decision Making [facility] Narrative: Patient with chronic left leg pain with swelling with history of DVT been followed by were sclera surgeon for varicose veins also neurologist been seen the patient for painful neuropathy likely the cause for the pain patient's D-dimer was negative and on 12/13 venous Doppler was also negative for DVT patient advised to continue his gabapentin will give oxycodone for breakthrough pain advised to follow with neurologist and vascular surgeon Lab Data [facility] Lab Attestation statement: I reviewed the patient's lab results. 01/01/25 00:34 01/01/25 00:34 Labs: Lab Results 01/01/25 Range/Units 00:34 WBC 6.9 (4.8-10.8) X10*3/uL RBC 5.30 (4.60-5.80) X10*6/uL Hgb 15.3 (14.0-18.0) g/dl Hct 43.3 (42.0-52.0) % MCV 81.7 (80.0-98.0) fL MCH 28.9 (27.0-33.0) pg MCHC 35.3 (31.0-36.0) g/dl RDW 11.9 (11.0-16.0) % Plt Count 238 D (160-400) X10*3/uL MPV 10.7 (9.4-12.4) fL Immature Gran % (Auto) 0.4 (0.0-0.4) % Neut % (Auto) 64.1 (45-73) % Lymph % (Auto) 25.4 (20-40) % [place] % (Auto) 7.9 (2-11) % Eos % (Auto) 1.5 (0-4) % Baso % (Auto) 0.7 (0-2) % Lymph # (Auto) 1.7 (1.2-4.9) X10*3/uL [place] # (Auto) 0.5 (0.1-1.2) X10*3/uL Eos # (Auto) 0.1 (0.0-0.4) X10*3/uL Baso # (Auto) 0.1 (0.0-0.2) X10*3/uL Abs Immat Gran (auto) 0.03 (0.00-0.03) X10*3/uL Absolute Neuts (auto) 4.4 (2.0-8.3) x10*3/uL Absolute Nucleated RBC 0.000 (0.0-0.012) X10*3/uL Nucleated RBC % (auto) 0.0 (0.0-0.2) /100WBC PT 12.9 H (10.9-12.4) SEC INR 1.1 (0.9-1.1) D-Dimer High Sensitivty < 150 NG/ML Sodium 137 (135-145) mmol/L Potassium 4.6 (3.3-5.1) mmol/L Chloride 101 (96-108) mmol/L Carbon Dioxide 25 (22-29) mmol/L Anion Gap 16 (12-20) BUN 16 (9-16) mg/dL Creatinine 0.82 (0.5-1.4) mg/dL Estim Creat Clear Calc 130.7 Estimated GFR > 60 Random Glucose 198 H (60-115) mg/dL Calcium 10.1 (8.4-10.2) mg/dL Total Bilirubin 0.8 (0.0-1.0) mg/dL AST 26 (5-37) U/L ALT 39 (0-40) U/L Alkaline Phosphatase 96 (39-117) U/L Total Protein 8.2 H (6.5-8.0) g/dL Albumin 4.5 (3.5-5.0) g/dL Discharge Plan Discharge Clinical Impression: Lower extremity neuropathy Qualifiers: Laterality: bilateral Qualified Code(s): G57.93 - Unspecified mononeuropathy of bilateral lower limbs Patient Disposition: Home, Self-Care Instructions: Diabetic Peripheral Neuropathy (ED) Additional Instructions: Take medication as prescribed and follow with neurologist/vascular surgeon Prescriptions: No Action tramadol 50 mg tablet 50 mg PO BID PRN (Reason: pain) Qty: 8 0RF diclofenac sodium 1 % gel topical furosemide 20 mg tablet 20 mg PO DAILY Eliquis 5 mg tablet PO (DME) lancets [OneTouch Delica Plus Lancet] 33 gauge misc See Rx Instructions .ROUTE DAILY Qty: 100 Rx Instructions: As directed metformin 1,000 mg tablet 1,000 mg PO BID (DME) OneTouch Ultra Test Strip See Rx Instructions .ROUTE .MEDSUPPLY Qty: 10 Rx Instructions: As directed Print Language: Monegasque
[2025-01-01 00:45] LABS: INTERNATIONAL NORM RATIO 1.1 (0.9-1.1); Prothrombin Time 12.9 SEC (10.9-12.4)
[2025-01-01] MEDS: Morphine Sulfate Immed Release 15 MG TABLET PO (00:55)
[2025-01-01 04:50] LABS: Alanine Aminotransferase 39 U/L (0-40); Albumin Level 4.5 g/dL (3.5-5.0); Alkaline Phosphatase 96 U/L (39-117); Anion Gap 16 (12-20); Aspartate Amino Transferase 26 U/L (5-37); Bilirubin Total 0.8 mg/dL (0.0-1.0); Blood Urea Nitrogen 16 mg/dL (9-16); Calcium 10.1 mg/dL (8.4-10.2); Carbon Dioxide 25 mmol/L (22-29); Chloride 101 mmol/L (96-108); Creatinine Clr Calc Pharmacy 130.7; Estimated Glomerular Filt Rate > 60; Glucose Random 198 mg/dL (60-115); Potassium 4.6 mmol/L (3.3-5.1); Sodium 137 mmol/L (135-145); Total Protein 8.2 g/dL (6.5-8.0)
[2025-01-01 04:54] LABS: D Dimer High Sensitivity < 150 NG/ML
--- OUTSIDE RECORDS SUMMARY | 2025-01-01 04:54 | XMS_ITS | Data Portability ---
Author Organization [facility], [facility] Address [address] [place] [address] Assessment Encounter Date Assessment Date Assessment LastModified [...] keep track of associated symptoms and timing [email or web address] Not available 09/20/2021 14:57:52 Plan of Treatment Reminders Order Date Submit Date Provider Last Modified By Organization Details Last Modified Time Details Appointments None recorded. Lab HbA1c (hemoglob in A1c), blood 2019 020 [facility] ([facility]), [address] [place], [address], 0 11:15:17 CMP, serum or plasma 2019 020 [facility] ([facility]), [address], [place], [address], 0 11:15:17 CBC w/ auto diff 2019 [facility] ([facility]), [address], [place], [address], 0 11:15:17 microalbu min, urine 2019 [facility] ([facility]), [address], [place], [address], 0 11:15:17 lipid panel, serum 2019 [facility] ([facility]), [address], [place], [address], 0 11:15:17 HbA1c (hemoglob in A1c), blood 2020 [facility] ([facility]), [address], [place], [address], 10:05:18 CMP, serum or plasma 2020 [facility] ([facility]), [address], [place], [address], 10:05:18 urinalysi s, complete 2020 [facility] ([facility]), [address], [place], [address], 10:05:18 microalbu min, urine 2020 [facility] ([facility]), [address], [place], [address], 10:05:18 CBC w/ auto diff 2020 [facility] ([facility]), [address], [place], [address], 10:05:18 TSH, serum or plasma 2020 [facility] ([facility]), [address], [place], [address], 10:05:18 nicotine and metabolit es, qualitati ve, serum 2020 [facility] ([facility]), [address], [place], [address], 10:05:18 lipid panel, serum 2020 [facility] ([facility]), [address], [place], [address], 10:05:18 Referral None recorded. Procedures None recorded. Surgeries None recorded. Imaging None recorded. Medication Orders None recorded. Patient TargetsNo targets recorded. Patient Instructions Encounter Date Encounter Id Patient Instructions Last Modified By Organization Details Last Modified Time 07/21/2020 [id number] When You Want to Lose Weight: Care Instructions [email or web address] Not available 07/21/2020 10:10:24 sleep apnea: car e instructions [email or web address] Not available 07/21/2020 10:10:24 type 2 diabetes: care instructions [email or web address] Not available 07/21/2020 10:10:24 high cholesterol : care instructions [email or web address] Not available 07/21/2020 10:10:24 09/20/2021 [id number] sleep apnea: car e instructions [email or web address] Not available 09/20/2021 14:48:05 learning about type 2 diabetes [email or web address] Not available 09/20/2021 14:41:58 type 2 diabetes: care instructions [email or web address] Not available 09/20/2021 14:41:59 high cholesterol : care instructions [email or web address] Not available 09/20/2021 14:41:59 Reason for Referral [...] nts. Visit our websi te at [email or web address] :[email or web address] for resou rces and infor arlene zamora. This nucle ic acid ampli ficat ion test was devel oped and its perfo rmanc e amrik cteri stics deter mined by [employer] [facility] [employer] [facility]. Nucle ic acid [...] would expec t to have a negat cheryl (not detec esperanza) resul t in this assay . Perfo rmed At: [facility] [place] [address] [place] [address] Joss Tenzin Gaona MD Ph:[phone] Not Available [facility] ([facility]) [address] [place] [address], [address], 11/01/2021 15:09:09 Result Notes None recorded. Problems Name Problem SNOMED Code Status Onset Date Resolution Date Notes Provider Name and Address Organization Details Recorded Time Obesity 303562681 Active 2019 250 EDMOND PEREZ MD [address], [place], [place], [facility] [employer] [facility] 0 10:00:53 Type 2 diabetes mellitus 74705230 Active 2019 EDMOND PEREZ MD [address], [place], [place], [facility] 0 09:57:17 Hyperlipide jacinto 98179965 Active 2019 EDMOND PEREZ MD [address], [place], [place], [facility] [facility] 0 09:57:27 Obstructive sleep apnea syndrome 44374823 Active 2019 sleep study EDMOND PEREZ MD [address], [place], [place], [facility] 0 10:00:12 Increased blood pressure 83362184 Active 2020 YADI FLOWERS null, [facility] 14:23:17 Nausea 080714074 Active 2020 episodes with overheat and flush EDMOND PEREZ MD [address], [place], [place], [facility] [employer] [facility] 1 14:32:09 Problem Notes None recorded. Medical Equipment None Reported. Allergies No known drug allergies Medications Not known to be on any medication Vitals Date Recorded Body weight Heart rate Respiratory rate Oxygen saturation Oxygen saturation in Arterial blood by Pulse oximetry Pain severity - 0-10 verbal numeric rating [Score] - Reported Systolic blood pressure Diastolic blood pressure Provider Name and Address Organization Details Last Updated DateTime 0 848241. 1 g 105 /min 16 /min 98 % 98 % 0 140 mm[Hg] 98 mm[Hg] Britney Barclay [employer] 0 09:49:31 Date Recorded Body height Body mass index (BMI) Body weight Heart rate Oxygen saturation Oxygen saturation in Arterial blood by Pulse oximetry Systolic blood pressure Diastolic blood pressure Provider Name and Address Organization Details Last Updated DateTime 1 172.09 cm 33.2 kg/m2 06549.5 4 g 103 /min 98 % 98 % 136 mm[Hg] 102 mm[Hg] YADI FLOWERS [employer] 1 14:15:04 Social History Question Answer Notes LastModified by [email or web address] Details LastModified Time Tobacco Smoking Status Former Smoker Britney Barclay null, [employer] 07/21/2020 09:45:44 What Is Your Level Of [...] Or The Highest Degree You Have Received? ER54800-9 Information not available 09/20/2021 Who Is Your Employer? 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 No Information not available 09/20/2021 How Many Years Have You Smoked Tobacco? 2 Quit 10 Yrs Ago [email or web address] Information not available 07/21/2020 Sex: Unknown Functional Status Question Answer Note LastModified by Organizat ion Details LastModified Time What is your exercise [...] SNOMED-CT Code Diagnosis ICD10 Code Diagnosis Note [id number] EDMOND PEREZ MD [facility] [place] 665854-[address] 07/21/2020 09:35:36 07/21/2020 10:26:10 Adult health examination 924161501 Z00.00 Hyperlipidemia 71652811 E78.5 Obesity 403906946 E66.9 Obstructiv e sleep apnea syndrome 44266827 G47.33 Type 2 jennifer betes mellitus without complication 031980092 E11.9 [id number] EDMOND PEREZ MD [facility] [place] 665854-[address] 1 09/20/2021 14:04:21 09/20/2021 14:57:54 Adult health examination 414602672 Z00.00 Increased blood pressure 47616545 R03.0 Hyperlipidemia 46120767 E78.5 Type 2 jennifer betes mellitus 10679267 E11.9 Obstructiv e sleep apnea syndrome 68183762 G47.33 Health Concerns Section Related Observation LastModified by Organization Detai ls LastModified Time None Recorded Concern Status LastModified by Organization Details LastModified Time None Recorded Advance Directives Directive None Recorded Payers Encounter Date Sequence Insurance Name Policy Number Policy Cisneros Covered Member ID Cisneros Member ID Guarantor Name 07/21/2020 1 [employer] [id number] Mega Jason Gravel [id number] [employer] Gra[employer] 09/20/2021 1 [employer] [id number] Mega Hinojosa [id number] Mega Hinojosa Notes Date Note Type Note Provider Name [...] Maximum weight 255 pounds EDMOND PEREZ MD [address], [place], [address], [employer] 07/21/2020 11:21:33 09/20/2021 text/html comprehensive history and [...] CPAP EDMOND PEREZ MD [address], [place], [address], [employer] [employer] 09/20/2021 14:58:04
--- OUTSIDE RECORDS SUMMARY | 2025-01-01 04:54 | XMS_ITS | Clinical Summary ---
Author Organization [facility] Address [address] [place] [address] Care Team Providers Care Food Photographer Name Role Phone Wendy Bhandari MD Primary Care Provider Allergies No known active allergies Medications Medication Sig Dispensed Refills Start Date End Date Status metFORMIN (GLUCOPHAGE) tablet 1000 mg Take 1 tablet (1,000 mg total) by mouth 2 (two) times a day with meals. 0 Active furosemide (LASIX) 20 MG tablet Take 1 tablet (20 mg total) by mouth daily. 0 Active Social History Tobacco Use Types Packs/Day Years [...] age to complete this topic Care Teams Food Photographer Relationship Specialty Start Date End Date Wendy Bhandari MD [address] [place] [address] PCP - General Family Medicine 08/26/24
--- OUTSIDE RECORDS SUMMARY | 2025-01-01 04:54 | XMS_ITS | Clinical Summary ---
Author Organization [facility] Address [address] [place] [address] Phone Care Team Providers Care Long Distance Operator Name Role Phone Wendy Bhandari MD [...] Type Department Care Team Description 12/08/2024 Telephone [facility] Hematology Oncology [address] [place] [address] Karolina Mayer PA Advice Only 11/20/2024 4:29 PM EST - 11/20/2024 11:59 PM EST Hospital Encounter [facility] MRI [address] [place] [address] Pain Discharge Disposition: Home or Self Care 11/04/2024 Telephone [facility] Hematology Oncology [address] [place] [address] Karolina Mayer PA 11/04/2024 Telephone [facility] Hematology Oncology [address] [place] [address] Karolina Mayer PA from Last 3 Months Surgical History [...] Description 03/09/2025 3:15 PM EDT Office Visit [facility] Hematology Oncology [address] [place] [phone] Karolina Mayer PA [address] [place] [address] Health Maintenance Due Date Last Done Comments [...] Health Screening 12/21/2023 COVID-19 Vaccine ( - 2023- season) 2024 Influenza Vaccine (#1) 2024 Diabetes: [...] LEFT Routine 11/20/2024 5:53 PM EST Pain ANNUAL BMP BLOOD TEST Routine 09/04/2024 HEMOGLOBIN [...] atrophy. ??They are incompletely included in the [id number]. ??Consider further evaluation with dedicated MRI of the calf. -------- FINAL REPORT -------- Dictated By: Snodgress, Roshan Dictated Date: 11/21/2024 14:26 ET Assigned Physician: Roshan Pérez Reviewed and Electronically Signed By: Roshan Pérez Signed Date: 11/21/2024 14:43 ET Workstation ID: [id number] Transcribed By: Self Edit Transcribed Date: 11/21/2024 [...] denervation atrophy. They are incompletely included inthe [id number]. Consider further evaluation with dedicated MRI of thecalf. -------- FINAL REPORT -------- Dictated By: Roshan Pérez Dictated Date: 11/21/2024 14:26 ET Assigned Physician: Roshan Pérez Reviewed and Electronically Signed By: Roshan Pérez Signed Date: 11/21/2024 14:43 ET Workstation ID: [id number] Transcribed By: Self Edit Transcribed Date: 11/21/2024 14:39 ET Ozzie Aguirre DPM IMG MRI PROCED URES * Annual BMP Blood Test (09/04/2024) Pathologist [facility] Annual BMP Blood Test abstracted Historical Provider [facility] * (ABNORMAL) Hemoglobin A1c (09/04/2024) Pathologist [facility] Hemoglobin A1C 9.7(A) 6.5 % Blood Venous blood specimen / Unknown Historical Provider LAB BLOOD ORDERAB LES * (ABNORMAL) Lipid panel (09/04/2024) Pathologist [facility] LDL/HDL Ratio 8(A) 0 - 4 Triglycerides 569(A) 0 - 150 mg/dL Cholesterol 219(A) 0 - 200 mg/dL HDL 28(A) 40 mg/dL Blood Venous blood specimen / Unknown Historical Provider LAB BLOOD ORDERAB LES * Urine Albumin Creatinine Ratio (08/15/2024) Urine Albumin Creatinine Ratio abstracted Historical Provider MD AAMIR Faustin from Last 3 Months or Most Recently Relevant to Health Maintenance Care Teams Long Distance Operator Relationship Specialty Start Date End Date Wendy Bhandari MD [address] [place] [address] [place] [address] PCP - General 09/08/24
--- OUTSIDE RECORDS SUMMARY | 2025-01-01 04:54 | XMS_ITS | Encounter Summary ---
Author Organization [facility] Address [address] [place] [address] Care Team Providers Care Air Brake Rigger Name Role Phone Wendy Bhandari MD Primary Care Provider Encounter Details Date Type Department Care Team (Late st Contact Info) Description 09/24/2024 11:09 AM EDT Hospital Encounter TH HISTORIC ENCOUNTERS EASTERN CONVERSION ONLY Annelise Lundberg, DO [address] [place] [address] Karolina Mayer PA [address] [place] [address] Social History Tobacco Use Types Packs/Day Years [...] Mayer PA-C Service: -- Author Type: Physician Email Manager Filed: 09/24/2024 4:16 PM Encounter Date: 09/24/2024 Status: Signed Communications Writer: Karolina Mayer PA-C (Physician Email Manager) Cosigner: Annelise Lundberg DO at 09/24/2024 [...] his and kids. 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 [...] Bhandari* Sign: Karolina Mayer PA-C Hematology/Oncology [facility] [phone] documented in this encounter Plan of Treatment Upcoming Encounters Date Type Department Care Team (Late st Contact Info) Description 03/09/2025 3:15 PM EDT Office Visit [facility] Hematology Oncology [address] [place] [address] Karolina Mayer PA [address] [place] [address] documented as of this encounter Visit Diagnoses Not on filedocumented in this encounter Care Teams Air Brake Rigger Relationship Specialty Start Date End Date Wendy Bhandari MD [address] [place] [address] PCP - General 09/08/24 documented as of this encounter
--- OUTSIDE RECORDS SUMMARY | 2025-01-01 04:54 | XMS_ITS | Encounter Summary ---
Author Organization [facility] Address [address] [place] [address] Care Team Providers Care Finishing Inspector Name Role Phone Wendy Bhandari MD Primary Care Provider Reason for Visit * Reason Onset Date Comments Advice Only 12/08/2024 Encounter Details Date Type Department Care Team (Late st Contact Info) Description 12/08/2024 Telephone [facility] Hematology Oncology [address] [place] [address] Karolina Mayer PA [address] [place], [place] [phone] Advice Only Social History Tobacco Use Types [...] [place] - 12/08/2024 1:19 PM EST Called [facility] vascular office notes and US report [...] that he saw a vascular doctor from [facility] and had an US there in October. [...] taking eliquis anymore. May be reached at [phone]. documented in this encounter Plan of Treatment Upcoming Encounters Date Type Department Care Team (Late st Contact Info) Description 03/09/2025 3:15 PM EDT Office Visit [facility] Hematology Oncology [address] [place] [phone] Karolina Mayer PA [address] [place] [address] documented as of this encounter Visit Diagnoses Not on filedocumented in this encounter Discontinued Medications Medication Sig Discontinue Reason Start Date End Da te apixaban (Eliquis) 5 mg tablet Take 1 Tablet by mouth 2 times daily. Dx DVT left leg 08/21/24 Reorder 08/26/2024 12/08/2024 documented as of this encounter Care Teams Finishing Inspector Relationship Specialty Start Date End Date Wendy Bhandari MD [address] [place] [address] PCP - General 09/08/24 documented as of this encounter
[2025-01-01 07:09] VITALS: BP 154/100; PULSE 103; RESP 18; TEMP 36.4; O2SAT 96
== END 2025-01-01 07:10 | disposition home or self-care (01) ==
PROVIDERS: Emergency Provider Internal Medicine; PCP Nurse Practitioner Family
DX: G57.93 Unspecified mononeuropathy of bilateral lower limbs (principal); M79.605 Pain in left leg; Z86.718 Personal history of other venous thrombosis and embolism; Z79.01 Long term (current) use of anticoagulants; Z79.899 Other long term (current) drug therapy
CPT/HCPCS: 36415; 80053; 82947; 83036; 85025; 85379; 85610; 99283; 99284

== ENCOUNTER → 2025-01-01 14:22 | Outpatient (REF) ==
--- NOTE | ~2025-01-01 | US_ITS ---
EXAMINATION: US NONINVASIVE ASSESSMENT OF THE LEFT LOWER EXTREMITY WITH ARTERIAL DUPLEX AND ANKLE BRACHIAL INDICES (ABIS) CLINICAL INFORMATION: Swelling, left lower extremity COMPARISON: Correlated to venous Doppler dated January 01, 2025 and December 13, 2024 TECHNIQUE: Duplex Doppler techniques with waveform analysis and measurement of velocities in the common femoral, profunda femoris, superficial femoral, popliteal and tibial arteries were performed. In addition, ankle pulse volume recordings, ankle pressure measurements and ankle brachial indices were obtained of the left lower extremity arterial system. The study was performed only at rest. FINDINGS: NONINVASIVE ASSESSMENT OF THE ARTERIES OF BILATERAL LOWER EXTREMITIES : LEFT LOWER EXTREMITY DUPLEX ULTRASOUND: Common femoral artery: 120 cm/s. Triphasic waveforms. Profunda femoris artery: 61 cm/s. Triphasic waveforms. Superficial femoral artery (proximal): 88 cm/s. Triphasic waveforms. Superficial femoral artery (mid): 82 cm/s. Triphasic waveforms. Superficial femoral artery (distal): 83 cm/s. Triphasic waveforms. Popliteal artery: 77 cm/s Triphasic waveforms. Posterior tibial artery: 121 cm/s Triphasic waveforms. Peroneal artery: 55 cm/s. Triphasic waveforms. Anterior tibialis artery: 67 cm/s. Triphasic waveforms. Dorsalis pedis artery: 38 cm/s. Monophasic waveforms. US/US arterial duplex LE LT IMPRESSION: Severe inflow disease, left dorsalis pedis artery. Electronically signed by: Mahamed Freire MD 01/01/2025 03:17 PM [facility]
--- NOTE | ~2025-01-01 | US_ITS ---
EXAMINATION: US TRIPLEX LOWER EXTREMITY, LEFT CLINICAL INFORMATION: Edema, left lower extremity COMPARISON: December 13, 2024. TECHNIQUE: Color-flow triplex imaging with spectral analysis and compression Doppler were performed on the left lower extremity. FINDINGS: Respiratory variation, normal compression and augmented flow are noted throughout the left lower extremity. The visualized common femoral vein, superficial femoral vein, profunda femoral vein, popliteal vein and midcalf peroneal and posterior tibial venous segments show no evidence of deep venous thrombosis. There is no Nance's cyst. US/US venous duplex LE LT IMPRESSION: No acute deep venous thrombosis involving the left lower extremity. Negative exam. Electronically signed by: Mahamed Freire MD 01/01/2025 03:09 PM [facility]
--- OUTSIDE RECORDS SUMMARY | 2025-01-01 14:24 | XMS_ITS | Encounter Summary ---
Author Organization [facility] Address [address] [place] [address] Care Team Providers Care Snack Steward Name Role Phone Wendy Bhandari MD Primary Care Provider Reason for Visit * Reason Onset Date Comments Advice Only 12/08/2024 Encounter Details Date Type Department Care Team (Late st Contact Info) Description 12/08/2024 Telephone [facility] Hematology Oncology [address] [place] [address] Karolina Mayer PA [address] [place], [place] [phone] Advice Only Social History Tobacco Use Types [...] [place] - 12/08/2024 1:19 PM EST Called [facility] vascular office notes and US report [...] that he saw a vascular doctor from [facility] and had an US there in October. [...] taking eliquis anymore. May be reached at [phone]. documented in this encounter Plan of Treatment Upcoming Encounters Date Type Department Care Team (Late st Contact Info) Description 03/09/2025 3:15 PM EDT Office Visit [facility] Hematology Oncology [address] [place] [phone] Karolina Mayer PA [address] [place] [address] documented as of this encounter Visit Diagnoses Not on filedocumented in this encounter Discontinued Medications Medication Sig Discontinue Reason Start Date End Da te apixaban (Eliquis) 5 mg tablet Take 1 Tablet by mouth 2 times daily. Dx DVT left leg 08/21/24 Reorder 08/26/2024 12/08/2024 documented as of this encounter Care Teams Snack Steward Relationship Specialty Start Date End Date Wendy Bhandari MD [address] [place] [address] PCP - General 09/08/24 documented as of this encounter
--- OUTSIDE RECORDS SUMMARY | 2025-01-01 14:24 | XMS_ITS | Clinical Summary ---
[facility] Organization [facility] Address [address] [place] [address] Care Team Providers Care Cutting Machine Operator Helper Name Role Phone Wendy Bhandari MD Primary [...] age to complete this topic Care Teams Cutting Machine Operator Helper Relationship Specialty Start Date End Date Wendy Bhandari MD [address] [place] [address] PCP - General Family Medicine 08/26/24
--- OUTSIDE RECORDS SUMMARY | 2025-01-01 14:24 | XMS_ITS | Clinical Summary ---
Author Organization [facility] Address [address] [place] [address] Phone Care Team Providers Care Director Of Housing Name Role Phone Wendy Bhandari MD Primary [...] Type Department Care Team Description 12/08/2024 Telephone [facility] Hematology Oncology [address] [place] [address] Karolina Mayer PA Advice Only 11/20/2024 4:29 PM EST - 11/20/2024 11:59 PM EST Hospital Encounter [facility] MRI [address] [place] [address] Pain Discharge Disposition: Home or Self Care 11/04/2024 Telephone [facility] Hematology Oncology [address] [place] [address] Karolina Mayer PA 11/04/2024 Telephone [facility] Hematology Oncology [address] [place] [address] Karolina Mayer PA from Last 3 Months [...] Description 03/09/2025 3:15 PM EDT Office Visit [facility] Hematology Oncology [address] [place] [phone] Karolina Mayer PA [address] [place] [address] Health Maintenance Due Date Last Done Comments [...] atrophy. ??They are incompletely included in the owmge-il-ydbq. ??Consider further evaluation with dedicated MRI of the calf. -------- FINAL REPORT -------- Dictated By: Snodgress, Roshan Dictated Date: 11/21/2024 14:26 ET Assigned Physician: Roshan Pérez Reviewed and Electronically Signed By: Roshan Pérez Signed Date: 11/21/2024 14:43 ET Workstation ID: [id number] Transcribed By: Self Edit Transcribed Date: 11/21/2024 [...] denervation atrophy. They are incompletely included inthe lqvae-us-pjiq. Consider further evaluation with dedicated MRI of thecalf. -------- FINAL REPORT -------- Dictated By: Roshan Pérez Dictated Date: 11/21/2024 14:26 ET Assigned Physician: Roshan Pérez Reviewed and Electronically Signed By: Roshan Pérez Signed Date: 11/21/2024 14:43 ET Workstation ID: [id number] Transcribed By: Self Edit Transcribed Date: 11/21/2024 14:39 ET Ozzie Aguirre DPM IMG MRI PROCED URES * Annual BMP Blood Test (09/04/2024) Pathologist [facility] Annual BMP Blood Test abstracted Historical Provider [facility] MAINMIANC E * (ABNORMAL) Hemoglobin A1c (09/04/2024) Pathologist [facility] Hemoglobin A1C 9.7(A) 6.5 % Blood Venous blood specimen / Unknown Historical Provider LAB BLOOD ORDERAB LES * (ABNORMAL) Lipid panel (09/04/2024) Pathologist [facility] LDL/HDL Ratio 8(A) 0 - 4 [...] Recently Relevant to Health Maintenance Care Teams Director Of Housing Relationship Specialty Start Date End Date Wendy Bhandari MD [address] [place] [address] [place] [address] PCP - General 09/08/24
== END | disposition home or self-care (01) ==
LOC: HO.US 14:22
DX: R60.0 Localized edema (principal)

== ENCOUNTER → 2025-01-01 14:25 | Outpatient (BNV) | payer BC, SELFPAY | PROVIDERS: Visit Provider Radiology Diagnostic Radiology | DX: I70.292 Other atherosclerosis of native arteries of extremities, left leg (principal); R60.0 Localized edema | CPT/HCPCS: 93926; 93971 ==

== ENCOUNTER 2025-01-15 13:38 | Outpatient (AMB) | payer BC, SELFPAY ==
--- NOTE | 2025-01-15 13:41 | A.OFFVIS_ITS ---
Intake Visit Reasons: follow up Arterial US 01/01/25 Intake Note: Patient preents for follow up arterial US performed on 01/01/25. Patient has no complaints. Accompanied by: Self / Same As Patient Allergies No Known Allergies Allergy (Verified 01/15/25 13:41) [facility] follow up Arterial US 01/01/25: Details: Very pleasant 44-year-old gentleman presents for follow-up regarding peripheral vascular disease. Continued swelling and pain of this leg. He had undergone venous insufficiency testing on 10/17/2024. At that time his venous insufficiency testing had shown to be negative. He has severe neuropathy and on his left leg is requiring the use of a boot. He has significant pain and swelling on that left leg. It appears that he is somewhat noncompliant and admits to this. His last hemoglobin A1c was 9.2 on 01/01/2025. He reports he quit smoking about 15 years prior and he has been a diabetic for over 10 years. Now presents to us for vascular follow-up. [facility] Medical History DVT (deep venous thrombosis) Varicose veins of both lower extremities with inflammation Diabetes mellitus with hyperglycemia Surgical History No pertinent past surgical history Social History Alcohol intake: never Patient Tobacco Use Status: Never used Tobacco Review of Systems Const All systems reviewed & are unremarkable except as noted in HPI and below Reports no additional complaints ENT Reports Normal hearing present Card Denies chest pain, Denies chest pain at rest, Denies chest pain with activity and Denies pedal edema Resp Denies cough GI Denies abdominal pain Musc Denies abnormal gait, Denies muscle cramps and Denies radiating pain into limb Skin/Breast Denies skin ulcer and Denies wounds Neuro Reports Normal hearing present and Denies abnormal gait Psych Reports no additional complaints Physical Exam Const General: cooperative, healthy appearing and comfortable Orientation/consciousness: oriented to person, oriented to place and oriented to time HEENT Head: Yes normal to inspection Neck Neck: Yes normal visual inspection Carotids: no bruits Chest Chest palpation & inspection: normal inspection of the chest Resp Effort & Inspection: normal respiratory effort and able to speak in complete sentences Auscultation: clear to auscultation bilaterally, no crackles, no rales, no rhonchi and no wheezes Cardio Other: Bilateral DP signals Rate: regular rate Rhythm: regular rhythm Heart sounds: S1 normal heart sound present and S2 normal heart sound present Bruits: no carotid bruits Peripheral pulses: Peripheral pulses 2+ throughout GI Inspection: Yes normal to inspection Skin Wounds: no wounds Hair: normal Neuro General: oriented to person, oriented to place and oriented to time Cranial nerves: Yes CN's II-XII intact bilaterally and Yes Normal hearing present Cognition (Neuro): normal cognition Motor exam (neuro): 5/5 motor strength present throughout Extrem Other: venous exam: No significant superficial varicosities or spider telangiectasias, minimal edema General: No clubbing, No cyanosis and No edema Psych Appearance: grossly normal Mental Status: mental status grossly normal Speech and movement: Normal speech and movement present Results Reviewed Results Reviewed: Noninvasive arterial testing dated 01/01/2025 demonstrates monophasic flow in tibial vessels. Written report and images were reviewed. Assessment & Plan Assessment & Plan (1) PAD (peripheral artery disease): Code(s): I73.9 - Peripheral vascular disease, unspecified Category: Medical Plan: Patient notes leg pain when walking distances. I have discussed the pathophysiology of peripheral vascular disease with the patient. I have also discussed risk factor modification. I have reviewed the patient's arterial testing which reveals left leg tibial disease. the patient would benefit from a left leg endovascular peripheral angiogram with possible angioplasty, stent, and/or atherectomy. This has been discussed in detail with the patient along with risks, benefits, and complications. This includes but is not limited to bleeding, infection, heart attack, need for emergent surgical repair, limb ischemia, blood vessel damage, bleeding, puncture, kidney injury, bruising, allergic reaction, and skin reaction. The patient demonstrates a clear understanding. We will schedule for the next appropriate time. Thank you for allowing us to assist in this patient's care. Coding Level of Care Code Est Pt Level 4 (20925) Diagnoses PAD (peripheral artery disease) I73.9
--- OUTSIDE RECORDS SUMMARY | 2025-01-15 14:35 | XMS_ITS | Clinical Summary ---
Author Organization [facility] Address [address] [place] [address] Phone Care Team Providers Care Shipping Weigher Name Role Phone Wendy Bhandari MD Primary Care Provider Allergies No known active allergies Medications blood-glucose meter misc Use to check sugars once daily. 08/15/20 24 Active ONETOUCH DELICA LANCETS MISC Use to check sugars once daily 08/15/20 24 Active glucose blood test strip Use to test sugars once daily 08/15/20 24 Active metFORMIN (GLUCOPHAGE) 1,000 mg tabletIndications:Obe sity, unspecified,Type 2 diabetes mellitus with hyperglycemia (CMS/HCC) TAKE 1 TABLET DAILY FOR 1 WEEK THEN INCREASE TO 1 TABLET TWICE A DAY 180 tablet 11/12/20 24 Active lisinopriL (PRINIVIL,ZESTRIL) 5 mg tabletIndications:Ivett vated blood-pressure reading, without diagnosis of hypertension,Proteinu rolando, unspecified TAKE 1 TABLET BY MOUTH EVERY DAY 90 tablet 11/12/20 24 Active apixaban (Eliquis) 5 mg tablet Take 1 tablet (5 mg total) by mouth 2 (two) times a day. 60 each 2 12/08/19 25 025 Active fenofibrate (TRICOR) 48 mg tabletIndications:Pur e hyperglyceridemia TAKE 1 TABLET BY MOUTH EVERY DAY 90 tablet 12/15/19 25 Active Encounters Date Type Department Care Team Description 12/08/2024 Telephone [facility] Hematology Oncology [address] [place] [phone] Karolina Mayer PA Advice Only 11/20/2024 4:29 PM EST - 11/20/2024 11:59 PM EST Hospital Encounter [facility] MRI [address] [place] [phone] Pain Discharge Disposition: Home or Self Care 11/04/2024 Telephone [facility] Hematology Oncology [address] [place] [phone] Karolina Mayer PA 11/04/2024 Telephone [facility] Hematology Oncology [address] [place] [phone] Karolina Mayer PA from Last 3 Months [...] on file Sexual Orientation Not on file Obstetrics History Last Filed [...] Description 03/09/2025 3:15 PM EDT Office Visit [facility] Hematology Oncology [address] [place] [address] Karolina Mayer PA [address] [place] [address] Health Maintenance Due Date Last Done Comments Diabetes: Annual Foot Exam 1990 Diabetes: Annual Retina Eye Exam 1990 DTaP,Tdap,and Td Vaccines (1 - Tdap) 1999 Hepatitis B Vaccines (1 of 3 - 19+ 3-dose series) 1999 Pneumococcal Vaccine: Pediatrics (0 to 5 Years) and At-Risk Patients (6 to 64 Years) (1 of 2 - PCV) 1999 Depression Screening 12/21/2023 HIV Screening 12/21/2023 Hepatitis C Screening 12/21/2023 Social Influencers of Health Screening 12/21/2023 COVID-19 Vaccine ( season) 2024 Influenza Vaccine (#1) 2024 Diabetes: [...] patient's age to complete this topic Meningococcal B Vacine Aged Out No lo nger eligible based on patient's age to complete [...] Report (11/21/2024) Anatomical Region Laterality Modality Ultrasound us Provider [facility] IMG US PROCEDURES Final Result * MR Ankle wo Contrast Left (11/20/2024 [...] atrophy. ??They are incompletely included in the dlusx-zd-kjme. ??Consider further evaluation with dedicated MRI of the calf. -------- FINAL REPORT -------- Dictated By: Roshan Pérez Dictated Date: 11/21/2024 14:26 ET Assigned Physician: Roshan Pérez Reviewed and Electronically Signed By: Roshan Pérez Signed Date: 11/21/2024 14:43 ET Workstation ID: [id number] Transcribed By: Self Edit Transcribed Date: 11/21/2024 [...] denervation atrophy. They are incompletely included inthe micae-lb-mgqi. Consider further evaluation with dedicated MRI of thecalf. -------- FINAL REPORT -------- Dictated By: Roshan Pérez Dictated Date: 11/21/2024 14:26 ET Assigned Physician: Roshan Pérez Reviewed and Electronically Signed By: Roshan Pérez Signed Date: 11/21/2024 14:43 ET Workstation ID: [id number] Transcribed By: Self Edit Transcribed Date: 11/21/2024 14:39 ET Result [facility] Ozzie Aguirre DPAlejandrina IMG MRI PROCEDURES Fin al Result * Annual BMP Blood Test (09/04/2024) [facility] Annual BMP Blood Test abstracted Result [facility] MAINTENANCE Final Result * (ABNORMAL) Hemoglobin A1c (09/04/2024) [facility] Hemoglobin A1C 9.7(A) <=6.5 % Blood Venous blood specimen / Unknown Result [facility] LAB BLOOD ORDERABLES Mitali l Result * (ABNORMAL) Lipid panel (09/04/2024) [facility] LDL/HDL Ratio 8(A) 0 - 4 Triglycerides 569(A) 0 - 150 mg/dL Cholesterol 219(A) 0 - 200 mg/dL HDL 28(A) >=40 mg/dL Blood Venous blood specimen / Unknown Result [facility] LAB BLOOD ORDERABLES Mitali l Result * Urine Albumin Creatinine Ratio (08/15/2024) [facility] Urine Albumin Creatinine Ratio abstracted Result [facility] HEALTH MAINTENANCE Final Result from Last 3 Months or Most Recently Relevant to Health Maintenance Insurance BARBARA HUBBARD ([facility]) Care Teams Shipping Weigher Relationship Specialty Start Date End Date Wendy Bhandari MD [address] [place] [address] [facility] [place] [address] PCP - General 09/08/24
--- OUTSIDE RECORDS SUMMARY | 2025-01-15 14:35 | XMS_ITS | Clinical Summary ---
[facility] Organization [facility] Address [address] [place] [address] Care Team Providers Care Telephone Lineman Name Role Phone Wendy Bhandari MD Primary [...] age to complete this topic Care Teams Telephone Lineman Relationship Specialty Start Date End Date Wendy Bhandari MD [address] [place] [address] PCP - General Family Medicine 08/26/24
--- OUTSIDE RECORDS SUMMARY | 2025-01-15 14:35 | XMS_ITS | Data Portability ---
Author Organization [facility] [employer] [facility] Address [address] [place] [address] Assessment Encounter Date Assessment Date Assessment LastModified [...] keep track of associated symptoms and timing Not available 09/20/2021 14:57:52 Plan of Treatment Reminders Order Date Submit Date Provider Last Modified By Organization Details Last Modified Time Details Appointments None recorded. Lab HbA1c (hemoglob in A1c), blood 2020 021 [facility] ([facility]), [address] [place] [address], [address], 10:05:18 CMP, serum or plasma 2020 021 [facility] ([facility]), [address], [place], [address], 10:05:18 urinalysi s, complete 2020 [facility] ([facility]), [address], [place], [address], 10:05:18 microalbu min, urine 2020 [facility] ([facility]), [address], [place], [address], 10:05:18 CBC w/ auto diff 2020 [facility] ([facility]), [address], [place], [address], 10:05:18 TSH, serum or plasma 2020 [facility] ([facility]), [address], [place], [address], 10:05:18 nicotine and metabolit es, qualitati ve, serum 2020 [facility] ([facility]), [address], [place], [address], 10:05:18 lipid panel, serum 2020 [facility] ([facility]), [address], [place], [address], 10:05:18 HbA1c (hemoglob in A1c), blood 2019 [facility] ([facility]), [address], [place], [address], 0 11:15:17 CMP, serum or plasma 2019 [facility] ([facility]), [address], [place], [address], 0 11:15:17 CBC w/ auto diff 2019 [facility] ([facility]), [address], [place], [address], 0 11:15:17 microalbu min, urine 2019 [facility] ([facility]), [address], [place], [address], 0 11:15:17 lipid panel, serum 2019 [facility] ([facility]), [address], [place], [address], 0 11:15:17 Referral None recorded. Procedures None recorded. Surgeries None recorded. Imaging None recorded. Medication Orders None recorded. Patient TargetsNo targets recorded. Patient Instructions Encounter Date Encounter Id Patient Instructions Last Modified By Organization Details Last Modified Time 07/21/2020 [id number] When You Want to Lose Weight: Care Instructions [email or web address] Not available 07/21/2020 10:10:24 sleep apnea: car e instructions [email or web address] Not available 07/21/2020 10:10:24 type 2 diabetes: care instructions [email or web address] Not available 07/21/2020 10:10:24 high cholesterol : care instructions [email or web address] Not available 07/21/2020 10:10:24 09/20/2021 [id number] sleep apnea: car e instructions [email or web address] Not available 09/20/2021 14:48:05 learning about type 2 diabetes [email or web address] Not available 09/20/2021 14:41:58 type 2 diabetes: care instructions [email or web address] Not available 09/20/2021 14:41:59 high cholesterol : care instructions [email or web address] Not available 09/20/2021 14:41:59 Reason for Referral [...] nts. Visit our websi te at [email or web address] for resou rces and infor arlene zamora. This nucle ic acid ampli ficat ion test was devel oped and its perfo rmanc e amrik cteri stics deter mined by [employer] atori es. Nucle ic acid [...] an [address] [place] [address] Joss Tenzin Gaona MD [phone] Not Available [facility] ([facility]) [address] [place] [address], [address], 11/01/2021 15:09:09 Result Notes None recorded. Problems Name Problem SNOMED Code Status Onset Date Resolution Date Notes Provider Name and Address Organization Details Recorded Time Obesity 451246142 Active 2019 250 EDMOND PEREZ MD [address], [place], [place], [facility] [employer] [facility] 0 10:00:53 Type 2 diabetes mellitus 19089350 Active 2019 EDMOND PEREZ MD [address], [place], [place], [facility] [employer] [facility] 0 09:57:17 Hyperlipide jacinto 75688851 Active 2019 EDMOND PEREZ MD [address], [place], [place], [facility] [employer] [facility] 0 09:57:27 Obstructive sleep apnea syndrome 02224915 Active 2019 sleep study EDMOND PEREZ MD [address], [place], [place], [facility] [employer] [facility] 0 10:00:12 Increased blood pressure 33805905 Active 2020 YADI FLOWERS null, [facility] [employer] [facility] 14:23:17 Nausea 511898245 Active 2020 episodes with overheat and flush EDMOND PEREZ MD [address], [place], [place], [facility] [employer] [facility] 1 14:32:09 Problem Notes None recorded. Medical [...] Address Organization Details Last Updated DateTime 0 445649. 1 g 105 /min 16 /min 98 % 98 % 0 140 mm[Hg] 98 mm[Hg] Britney Barclay [employer] 0 09:49:31 Date Recorded Body height Body mass index (BMI) Body weight Heart rate Oxygen saturation Oxygen saturation in Arterial blood by Pulse oximetry Systolic blood pressure Diastolic blood pressure Provider Name and Address Organization Details Last Updated DateTime 1 172.09 cm 33.2 kg/m2 03946.5 4 g 103 /min 98 % 98 % 136 mm[Hg] 102 mm[Hg] YADI FLOWERS [employer] [facility] 1 14:15:04 Social History Question Answer Notes LastModified by EarDish Details LastModified Time Tobacco Smoking Status Former Smoker Britney Barclay null, [employer] [facility] 07/21/2020 09:45:44 What Is Your Level Of [...] Or The Highest Degree You Have Received? [id number] Information not available 09/20/2021 Who Is Your Employer? 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 Information not available 09/20/2021 Do You Use [...] SNOMED-CT Code Diagnosis ICD10 Code Diagnosis Note [id number] EDMOND PEREZ MD [facility] [place] [address]1494[address] 07/21/2020 09:35:36 07/21/2020 10:26:10 Adult health examination 380990070 Z00.00 Hyperlipidemia 68799000 E78.5 Obesity 485391347 E66.9 Obstructiv e sleep apnea syndrome 08164056 G47.33 Type 2 jennifer betes mellitus without complication 608281389 E11.9 [id number] EDMOND PEREZ MD [facility] [place] 261494-[address] 1 09/20/2021 14:04:21 09/20/2021 14:57:54 Adult health examination 079640788 Z00.00 Increased blood pressure 10770512 R03.0 Hyperlipidemia 40029133 E78.5 Type 2 jennifer betes mellitus 74576285 E11.9 Obstructiv e sleep apnea syndrome 82947076 G47.33 Health Concerns Section Related Observation LastModified by Organization Detai ls LastModified Time None Recorded Concern Status LastModified by Organization Details LastModified Time None Recorded Advance Directives Directive None Recorded Payers Encounter Date Sequence Insurance Name Policy Number Policy Cisneros Covered Member ID Cisneros Member ID Guarantor Name 07/21/2020 1 Enjoyor [id number] Mega Jason Gravel [id number] Mega Gra[employer] 09/20/2021 1 Enjoyor [id number] Mega Hinojosa [id number] Mega Hinojosa Notes Date Note Type Note [...] pounds EDMOND PEREZ MD [address], [place], [address], [employer] [facility] 07/21/2020 11:21:33 09/20/2021 text/html comprehensive history and [...] CPAP EDMOND PEREZ MD [address], [place], [address], [employer] 09/20/2021 14:58:04
--- OUTSIDE RECORDS SUMMARY | 2025-01-15 14:35 | XMS_ITS | Encounter Summary ---
Author Organization [facility] Address [address] [place] [address] Care Team Providers Care Material Carrier Name Role Phone Wendy Bhandari MD Primary Care Provider Encounter Details Date Type Department Care Team (Late st Contact Info) Description 09/24/2024 11:09 AM EDT Hospital Encounter TH HISTORIC ENCOUNTERS EASTERN CONVERSION ONLY Annelise Lundberg, DO [address] [place] [address] Karolina Mayer PA [address] [place] [phone] Social History Tobacco Use Types Packs/Day Years [...] Mayer PA-C Service: -- Author Type: Physician Quality Assurance Analyst Filed: 09/24/2024 4:16 PM Encounter Date: 09/24/2024 Status: Signed Spring Layer: Karolina Mayer PA-C (Physician Quality Assurance Analyst) Cosigner: Annelise Lundberg DO at 09/24/2024 9:23 [...] his and kids. 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 [...] Bhandari* Sign: Karolina Mayer PA-C Hematology/Oncology Sister [facility] [phone] documented in this encounter Plan of Treatment Upcoming Encounters Date Type Department Care Team (Late st Contact Info) Description 03/09/2025 3:15 PM EDT Office Visit [facility] Hematology Oncology [address] [place] [phone] Karolina Mayer PA [address] [place] [address] documented as of this encounter Visit Diagnoses Not on filedocumented in this encounter Care Teams Material Carrier Relationship Specialty Start Date End Date Wendy Bhandari MD [address] [place] [address] PCP - General 09/08/24 documented as of this encounter
== END 2025-01-15 14:20 | disposition home or self-care (01) ==
PROVIDERS: PCP Nurse Practitioner Family; Visit Provider Surgery Vascular Surgery
DX: I73.9 Peripheral vascular disease, unspecified (principal)
CPT/HCPCS: 99214

== ENCOUNTER → 2025-01-15 13:38 | Outpatient (BNVA) | payer BC, SELFPAY | PROVIDERS: PCP Nurse Practitioner Family; Visit Provider Surgery Vascular Surgery ==

== ENCOUNTER 2025-01-21 05:53 | Day surgery (SDC) | payer BC, SELFPAY ==
--- OUTSIDE RECORDS SUMMARY | 2025-01-15 15:15 | XMS_ITS | Clinical Summary ---
Author Organization [facility] Address [address] [place] [address] Phone Care Team Providers Care Embossograph Operator Name Role Phone Wendy Bhandari MD [...] Type Department Care Team Description 12/08/2024 Telephone [facility] Hematology Oncology [address] [place] [phone] Karolina Mayer PA Advice Only 11/20/2024 4:29 PM EST - 11/20/2024 11:59 PM EST Hospital Encounter [facility] MRI [address] [place] [phone] Pain Discharge Disposition: Home or Self Care 11/04/2024 Telephone [facility] Hematology Oncology [address] [place] [phone] Karolina Mayer PA 11/04/2024 Telephone [facility] Hematology Oncology [address] [place] [phone] Karolina Mayer PA from Last 3 Months [...] Description 03/09/2025 3:15 PM EDT Office Visit [facility] Hematology Oncology [address] [place] [address] Karolina Mayer PA [address] [place] [address] Health Maintenance Due Date Last Done Comments [...] atrophy. ??They are incompletely included in the [id number]. ??Consider further evaluation with dedicated MRI of the calf. -------- FINAL REPORT -------- Dictated By: Roshan Pérez Dictated Date: 11/21/2024 14:26 ET Assigned Physician: Roshan Pérez Reviewed and Electronically Signed By: Roshan Pérez Signed Date: 11/21/2024 14:43 ET Workstation ID: [id number] Transcribed By: Self Edit Transcribed Date: 11/21/2024 [...] denervation atrophy. They are incompletely included inthe [id number]. Consider further evaluation with dedicated MRI of thecalf. -------- FINAL REPORT -------- Dictated By: Roshan Pérez Dictated Date: 11/21/2024 14:26 ET Assigned Physician: Roshan Pérez Reviewed and Electronically Signed By: Roshan Pérez Signed Date: 11/21/2024 14:43 ET Workstation ID: [id number] Transcribed By: Self Edit Transcribed Date: 11/21/2024 14:39 ET Result [facility] Ozzie Aguirre DPAlejandrina IMG MRI PROCEDURES Fin al Result * Annual BMP Blood Test (09/04/2024) [facility] Annual BMP Blood Test abstracted Result [facility] MAINTENA[facility]CE Final Result * (ABNORMAL) Hemoglobin A1c (09/04/2024) [facility] Hemoglobin A1C 9.7(A) <=6.5 % Blood Venous blood specimen / Unknown Result [facility] LAB BLOOD ORDERABLES Mitali l Result * (ABNORMAL) Lipid panel (09/04/2024) [facility] LDL/HDL Ratio 8(A) 0 - 4 Triglycerides 569(A) 0 - 150 mg/dL Cholesterol 219(A) 0 - 200 mg/dL HDL 28(A) >=40 mg/dL Blood Venous blood specimen / Unknown Result [facility] LAB BLOOD ORDERABLES Mitali l Result * Urine Albumin Creatinine Ratio (08/15/2024) [facility] Urine Albumin Creatinine Ratio abstracted Result [facility] HEALTH MAINTENANCE Final Result from Last 3 Months or Most Recently Relevant to Health Maintenance Insurance BARBARA HUBBARD ([facility]) Care Teams Embossograph Operator Relationship Specialty Start Date End Date Wendy Bhandari MD [address] [place] [address] [place] [address] PCP - General 09/08/24
--- OUTSIDE RECORDS SUMMARY | 2025-01-15 15:15 | XMS_ITS | Encounter Summary ---
Author Organization [facility] Address [address] [place] [address] Care Team Providers Care Molasses And Caramel Operator Name Role Phone Wendy Bahndari MD Primary Care Provider Encounter Details Date Type Department Care Team (Late st Contact Info) Description 09/24/2024 11:09 AM EDT Hospital Encounter TH HISTORIC ENCOUNTERS EASTERN CONVERSION ONLY Annelise Lundberg, DO [address] [place] [address] Karolina Mayer PA [address] [place] [address] Social History Tobacco Use Types Packs/Day Years [...] Mayer PA-C Service: -- Author Type: Physician Home Health Aide Caregiver Filed: 09/24/2024 4:16 PM Encounter Date: 09/24/2024 Status: Signed Sole Cementer: Karolina Mayer PA-C (Physician Home Health Aide Caregiver) Cosigner: Annelise Lundberg DO at 09/24/2024 9:23 [...] his and kids. 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 [...] Bhandari* Sign: Karolina Mayer PA-C Hematology/Oncology Sister [facility] [phone] documented in this encounter Plan of Treatment Upcoming Encounters Date Type Department Care Team (Late st Contact Info) Description 03/09/2025 3:15 PM EDT Office Visit [facility] Hematology Oncology [address] [place] [phone] Karolina Mayer PA [address] [place] [phone] documented as of this encounter Visit Diagnoses Not on filedocumented in this encounter Care Teams Molasses And Caramel Operator Relationship Specialty Start Date End Date Wendy Bhandari MD [address] [place] [phone] PCP - General 09/08/24 documented as of this encounter
--- OUTSIDE RECORDS SUMMARY | 2025-01-15 15:15 | XMS_ITS | Clinical Summary ---
Author Organization [facility] Address [address] [place] [address] Care Team Providers Care Coin Teller Name Role Phone Wendy Bhandari MD Primary [...] age to complete this topic Care Teams Coin Teller Relationship Specialty Start Date End Date Wendy Bhandari MD [address] [place] [address] PCP - General Family Medicine 08/26/24
[2025-01-21] VITALS (18 sets, daily range): BP systolic 115–158; BP diastolic 81–107; PULSE 78–95; RESP 12–18; TEMP 36.6–36.7; O2SAT 93–97; BMI 32.5
[2025-01-21] MEDS: 0.9 % Sodium Chloride 1,000 ML 100 ML IVCONT (06:54)
[2025-01-21 06:55] LABS: Glucose, Whole Blood 209 mg/dL (60-115)
[2025-01-21 07:05] LABS: MANUAL DIFF FLAG NO
[2025-01-21 07:17] LABS: Basophils Percent Auto 0.6 % (0-2); Eosinophils Absolute Auto 0.1 X10*3/uL (0.0-0.4); Eosinophils Percent Auto 2.1 % (0-4); Hematocrit 38.6 % (42.0-52.0); Hemoglobin 13.1 g/dl (14.0-18.0); Imm Gran Abs Auto 0.03 X10*3/uL (0.00-0.03); Imm Gran Pct Auto 0.6 % (0.0-0.4); Lymphocytes Absolute Auto 1.6 X10*3/uL (1.2-4.9); Lymphocytes Percent Auto 31.2 % (20-40); Mean Corpuscular HGB Conc 33.9 g/dl (31.0-36.0); Mean Corpuscular Hemoglobin 27.9 pg (27.0-33.0); Mean Corpuscular Volume 82.3 fL (80.0-98.0); Mean Platelet Volume 10.9 fL (9.4-12.4); Monocytes Absolute Auto 0.4 X10*3/uL (0.1-1.2); Monocytes Percent Auto 7.2 % (2-11); Neutrophils Percent Auto 58.3 % (45-73); Platelet Count 233 X10*3/uL (160-400); Red Blood Count 4.69 X10*6/uL (4.60-5.80); Red Cell Distribution Width 12.1 % (11.0-16.0); White Blood Count 5.2 X10*3/uL (4.8-10.8)
[2025-01-21 07:23] LABS: Blood Urea Nitrogen 16 mg/dL (9-16); Creatinine Clr Calc Pharmacy 138.2; Estimated Glomerular Filt Rate > 60
[2025-01-21] MEDS: fentaNYL citrate/PF 100 MCG/2 ML VIAL 25 MCG IVPUSH (08:04)
[2025-01-21] MEDS: Midazolam HCl 2 MG/2 ML VIAL 0.5 MG IVPUSH (08:04)
--- NOTE | 2025-01-21 11:38 | P.OP_ITS ---
Operative Note Operative Note Date of Service: 01/21/25 Narrative: Angiogram report from [facility] Preoperative diagnosis: Atherosclerosis of left lower extremity with activity limiting claudication Postoperative diagnosis: Same Procedure: 1. Ultrasound-guided right common femoral access 2. Aortogram with bilateral lower extremity runoff Surgeon:Colin Hernandez M.D., FACS, RPVI Machine Feed Operator:None Anesthesia: Local with moderate conscious sedation. Total intraservice moderate sedation time was 31 minutes. I monitored the patient's level of consciousness and physiologic status continuously throughout the procedure. Specimens:none Drains:none Estimated blood loss: Less than 10 ml Implant: None Indications: Very pleasant 44-year-old gentleman presents for evaluation regarding peripheral vascular disease he had persistent left lateral leg pain. It has been a source of pain and discomfort for him. He now presents for endovascular intervention The patient has signed the informed consent after reviewing risks, complications, benefits, and alternatives previously discussed with the patient. The patient was given the opportunity to ask any additional questions or voice any concerns. All questions were answered to the patient's satisfaction. Procedure in detail: Patient was brought to the angiography suite prior to which a time-out was called for patient identification and site verification. Bilateral groins were prepped and draped in the standard surgical fashion. Under ultrasound guidance right common femoral was punctured with micro puncture needle and wire. Subsequently a precision 5 Luxembourgish sheath was then placed. Bentson wire was advanced to the level of the aorta. 5 Luxembourgish Flush catheter was brought up and parked at the level of the renal arteries. Aortogram was then undertaken. Catheter was brought down to the level of the iliac bifurcation. Iliacs were subsequently imaged. Runoff study was undertaken from the iliac bifurcation with power injection. Catheter was then brought in up and over to the left side SFA. Runoff study was then undertaken to better visualize the tibial vessels. No intervention was indicated. Through the sheath we imaged the right lower extremity. A CELT closure device was placed and the patient tolerated the procedure well. Interpretation of films: 1. Ultrasound demonstrates appropriate femoral access site. Vessel was patent with minimal stenosis. Needle entry was visualized. Image of ultrasound was saved. 2. Aortogram demonstrates appropriate caliber aorta. Minimal disease. Appropriate take-off of the renals. 3. Iliac images demonstrate no significant disease 4. Left Leg Common femoral artery: No significant disease Profundus Femoris: No significant disease Superficial femoral artery: No significant disease Popliteal artery (p1,p2,p3): No significant disease Anterior tibial artery: Occluded Peroneal artery: No significant disease Posterior tibial artery: No significant disease Dorsalis pedis/plantar arch: Incomplete 5. Right Leg Common femoral artery: No significant disease Profundus Femoris: No significant disease Superficial femoral artery: No significant disease Popliteal artery (p1,p2,p3): No significant disease Anterior tibial artery: Occluded Peroneal artery: No significant disease Posterior tibial artery: No significant disease Dorsalis pedis/plantar arch: Incomplete Conclusion: 1. Successful diagnostic angiogram 2. Anticoagulation status: No change This note is constructed using voice recognition software. While every effort has been made to ensure accuracy, assessment specialist errors may have been included. Thank you for allowing me to participate in the care of your patient. Yours sincerely, Colin Hernandez MD, FACS, R.P.V.I.
== END 2025-01-21 10:54 | disposition home or self-care (01) ==
PROVIDERS: PCP Nurse Practitioner Family; Visit Provider Surgery Vascular Surgery
DX: E11.51 Type 2 diabetes mellitus with diabetic peripheral angiopathy without gangrene (principal); I70.212 Atherosclerosis of native arteries of extremities with intermittent claudication, left leg
CPT/HCPCS: 36247; 36415; 75630; 76937; 82565; 82947; 84520; 85025; 99152; 99153; C1760; C1769; C1887; C1894; J1644; J2250; J2270; J3010; Q9967

== ENCOUNTER → 2025-01-21 05:53 | Outpatient (BNV) | payer BC, SELFPAY | PROVIDERS: PCP Nurse Practitioner Family; Visit Provider Surgery Vascular Surgery | DX: I70.212 Atherosclerosis of native arteries of extremities with intermittent claudication, left leg (principal) | CPT/HCPCS: 36200; 75630; 76937; 99152 ==

== ENCOUNTER 2025-01-30 08:13 | Outpatient (AMB) | payer BC, SELFPAY ==
--- NOTE | 2025-01-30 08:24 | A.OFFVIS_ITS ---
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 States his foot dropped about 8 months ago. NO injury he can recall. States he has flat feet and felt pain, he went to [facility]PT and they found a clot after 2 months. MRI done as well. He did 2-3 sessions of P.T and his leg swelled up. He was given a cam walker boot and has been wearing it about 7-8 months. EMG done. Allergies No Known Allergies Allergy (Verified 01/30/25 08:29) Medication List - Last Reconciled 01/30/25 by Dorina Pederson MD blood sugar diagnostic ([employer] Ultra Test strips) As directed fenofibrate nanocrystallized 48 mg PO DAILY gabapentin 300 mg PO BID lancets (OneTouch Delica Plus Lancet) As directed metformin 1,000 mg PO BID pioglitazone 30 mg PO DAILY HPI Comments Details: Saw patient previously 12/24/2024 for EMG. It showed evidence for peripheral neuropathy and also left peroneal neuropathy at fibular neck. This is thought to be from diabetes which has been poorly controlled. He follows with Dr. Edwards who referred him to physiatry. As mentioned above, has been noticing left footdrop for a few months. . Painful on left leg. Though at night, he doesn't feel it at home. If ties a sock around the toes at night, he won't have pain at all. He is working with a new PT who says he does have neuropathy based on his exam/testing. [employer] gave him a boot but it compresses the foot. He is wearing a off shelf, non custom boot. But it compresses the ankle. Leg/ankle could get swelling and pulling on lateral ankle. He was on Eliquis for DVT. Has seen Dr. Hernandez, status post angiogram, which was reported to be normal. Off Eliquis now. No swelling on the leg anymore. He is on gabapentin for the pain. He [facility] to [facility] in an [place]. 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 Patient was appropriately conversant and oriented. Good historian. MSK: There is movement on left EHL and dorsiflexion. Not full range though. I would say between 3+ to 4/5 strength. Can passively range ankle to neutral dorsiflexion. No clonus. When he walks, he purposefully extends knee to achieve a heel strike. Proprioception in left big toe appears intact. Light touch appears intact. Results Reviewed Results Reviewed: EMG done by me 12/24/2024: IMPRESSION: 1. This is an abnormal study. 2. 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 3. There is no electrodiagnostic evidence for lumbosacral plexopathy or lumbar radiculopathy. Notes from Dr. Edwards reviewed. Assessment & Plan Assessment & Plan (1) Left foot drop: Code(s): M21.372 - Foot drop, left foot Category: Medical (2) Neuropathy of left peroneal nerve: Code(s): G57.32 - Lesion of lateral popliteal nerve, left lower limb Category: Medical (3) Peripheral neuropathy: Code(s): G62.9 - Polyneuropathy, unspecified Category: Medical Qualifiers: Peripheral neuropathy type: polyneuropathy associated with underlying disease Qualified Code(s): G63 - Polyneuropathy in diseases classified elsewhere Plan We looked at the nerve conduction tables together to help him understand what peripheral neuropathy looks like an EMG/NCS and what it means. On exam today, he does have preserved light touch and proprioception. Footdrop is not so bad when tested isolated but more evident when he is walking. Which still poses him as a fall risk/injury wrist. He is not wearing the right boot for a footdrop. I would recommend him to go to [facility] for a custom-molded AFO all, with a medial support to prevent from rolling in, referral will be faxed. Would plan to repeat EMG 6 months after the last, with the hope that there is some improvement at least on the peroneal neuropathy. We discussed what peripheral neuropathy from diabetes would feel like, and hope that it could get better with better diabetic control. He understands that this is not a guarantee. Continue physical therapy, especially needed after he obtains the new AFO. Assessment and plan discussed with patient, and patient was agreeable. All qu estions were answered thoroughly. Follow up after AFO is obtained. Dorina Pederson MD, KT Board Certified, [place] Board of Physical Medicine and Rehabilitation (ABPMR) Board Certified, [place] Board of Electrodiagnostic Medicine (ABEM) Orders: Orders NE nerve conduction velocity Today G57.32 - Lesion of lateral popliteal nerve, left lower limb, G62.9 - Polyneuropathy, unspecified, M21.372 - Foot drop, left foot NE electromyogram (EMG) Today G57.32 - Lesion of lateral popliteal nerve, left lower limb, G62.9 - Polyneuropathy, unspecified, M21.372 - Foot drop, left foot Medications: New leg brace (Ankle Brace) Left AFO custom molded for foot drop, prevent from rolling in 1 ea 0RF G57.32 - Lesion of lateral popliteal nerve, left lower limb, G62.9 - Polyneuropathy, unspecified, M21.372 - Foot drop, left foot Coding Level of Care Code Est Pt Level 4 (98168) Diagnoses Left foot drop M21.372 Neuropathy of left peroneal nerve G57.32 Polyneuropathy associated with underlying disease G63 Peripheral neuropathy type: polyneuropathy associated with underlying disease
[2025-01-30 08:25] VITALS: BMI 31.6
--- OUTSIDE RECORDS SUMMARY | 2025-01-30 08:31 | XMS_ITS | Encounter Summary ---
Author Organization [facility] Address [address] [place] [address] Care Team Providers Care Avionics Supervisor Name Role Phone Wendy Bhandari MD Primary Care Provider Encounter Details Date Type Department Care Team (Late st Contact Info) Description 09/24/2024 11:09 AM EDT Hospital Encounter TH HISTORIC ENCOUNTERS EASTERN CONVERSION ONLY Annelise Lundberg, DO [address] [place] [address] Karolina Mayer PA [address] [place] [address] Social History Tobacco Use Types Packs/Day Years [...] Mayer PA-C Service: -- Author Type: Physician Take Off Worker Filed: 09/24/2024 4:16 PM Encounter Date: 09/24/2024 Status: Signed Threading Machine Tender: Karolina Mayer PA-C (Physician Take Off Worker) Cosigner: Annelise Lundberg DO at 09/24/2024 9:23 [...] his and kids. 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 [...] Bhandari* Sign: Karolina Mayer PA-C Hematology/Oncology Sister [facility] [phone] documented in this encounter Plan of Treatment Upcoming Encounters Date Type Department Care Team (Late st Contact Info) Description 03/09/2025 3:15 PM EDT Office Visit [facility] Hematology Oncology [address] [place] [phone] Karolina Mayer PA [address] [place] [phone] documented as of this encounter Visit Diagnoses Not on filedocumented in this encounter Care Teams Avionics Supervisor Relationship Specialty Start Date End Date Wendy Bhandari MD [address] [place] [address] PCP - General 09/08/24 documented as of this encounter
--- OUTSIDE RECORDS SUMMARY | 2025-01-30 08:31 | XMS_ITS | Clinical Summary ---
Author Organization [facility] Address [address] [place] [address] Phone Care Team Providers Care Vaccine Specialist Name Role Phone Wendy Bhandari MD [...] Type Department Care Team Description 12/08/2024 Telephone [facility] Hematology Oncology [address] [place] [phone] Karolina Mayer PA Advice Only 11/20/2024 4:29 PM EST - 11/20/2024 11:59 PM EST Hospital Encounter [facility] MRI [address] [place] [phone] Pain Discharge Disposition: Home or Self Care 11/04/2024 Telephone [facility] Hematology Oncology [address] [place] [phone] Karolina Mayer PA 11/04/2024 Telephone [facility] Hematology Oncology [address] [place] [phone] Karolina Mayer PA from Last 3 Months [...] [facility] Hematology Oncology [address] [place] [address] Karolina Mayer PA [address] [place] [address] Health Maintenance Due Date Last Done Comments [...] atrophy. ??They are incompletely included in the [id number]. ??Consider further evaluation with dedicated MRI of the calf. -------- FINAL REPORT -------- Dictated By: Roshan Pérez Dictated Date: 11/21/2024 14:26 ET Assigned Physician: Roshan Pérez Reviewed and Electronically Signed By: Roshan Pérez Signed Date: 11/21/2024 14:43 ET Workstation ID: [id number] Transcribed By: Self Edit Transcribed Date: 11/21/2024 [...] denervation atrophy. They are incompletely included inthe [id number]. Consider further evaluation with dedicated MRI of thecalf. -------- FINAL REPORT -------- Dictated By: Roshan Pérez Dictated Date: 11/21/2024 14:26 ET Assigned Physician: Roshan Pérez Reviewed and Electronically Signed By: Roshan Pérez Signed Date: 11/21/2024 14:43 ET Workstation ID: [id number] Transcribed By: Self Edit Transcribed Date: 11/21/2024 14:[address] [facility] Ozzie Aguirre DPAlejandrina IMG MRI PROCEDURES Fin al Result * Annual BMP Blood Test (09/04/2024) [facility] Annual BMP Blood Test abstracted Result [facility] MAINTENANCE Final Result * (ABNORMAL) Hemoglobin A1c (09/04/2024) [facility] Hemoglobin A1C 9.7(A) <=6.5 % Blood Venous blood specimen / Unknown Result [facility] LAB BLOOD ORDERABLES Mitali l Result * (ABNORMAL) Lipid panel (09/04/2024) [facility] LDL/HDL Ratio 8(A) 0 - 4 Triglycerides 569(A) 0 - 150 mg/dL Cholesterol 219(A) 0 - 200 mg/dL HDL 28(A) >=40 mg/dL Blood Venous blood specimen / Unknown Result [facility] LAB BLOOD ORDERABLES Mitali l Result * Urine Albumin Creatinine Ratio (08/15/2024) [facility] Urine Albumin Creatinine Ratio abstracted Result [facility] HEALTH MAINTENANCE Final Result from Last 3 Months or Most Recently Relevant to Health Maintenance Insurance BARBARA HUBBARD ([facility]) Care Teams Vaccine Specialist Relationship Specialty Start Date End Date Wendy Bhandari MD [address] [place] [address] [place] [address] PCP - General 09/08/24
--- OUTSIDE RECORDS SUMMARY | 2025-01-30 08:32 | XMS_ITS | Clinical Summary ---
Author Organization [facility] Address [address] [place] [address] Care Team Providers Care Gis Instructor Name Role Phone Wendy Bhandari MD Primary [...] age to complete this topic Care Teams Gis Instructor Relationship Specialty Start Date End Date Wendy Bhandari MD [address] [place] [address] PCP - General Family Medicine 08/26/24
--- OUTSIDE RECORDS SUMMARY | 2025-01-30 08:32 | XMS_ITS | Data Portability ---
Author Organization [facility] [employer] [facility] [employer], [facility] Address [address] [place] [address] Assessment Encounter Date Assessment Date Assessment LastModified [...] HbA1c (hemoglob in A1c), blood 2020 021 [facility] ([facility]), [address] [place] [address], [address], 10:05:18 CMP, serum or plasma 2020 021 [facility] ([facility]), [address], [place], [address], 10:05:18 urinalysi s, complete 2020 [facility] ([facility]), [address], [place], [address], 10:05:18 microalbu min, urine 2020 [facility] ([facility]), [address], [place], [address], 10:05:18 CBC w/ auto diff 2020 [facility] ([facility]), [address], [place], [address], 10:05:18 TSH, serum or plasma 2020 [facility] ([facility]), [address], [place], [address], 10:05:18 nicotine and metabolit es, qualitati ve, serum 2020 [facility] ([facility]), [address], [place], [address], 10:05:18 lipid panel, serum 2020 [facility] ([facility]), [address], [place], [address], 10:05:18 HbA1c (hemoglob in A1c), blood 2019 [facility] ([facility]), [address], [place], [address], 0 11:15:17 CMP, serum or plasma 2019 [facility] ([facility]), [address], [place], [address], 0 11:15:17 CBC w/ auto diff 2019 [facility] ([facility]), [address], [place], [address], 0 11:15:17 microalbu min, urine 2019 [facility] ([facility]), [address], [place], [address], 0 11:15:17 lipid panel, serum 2019 [facility] ([facility]), [address], [place], [address], 0 11:15:17 Referral None recorded. Procedures None recorded. Surgeries None recorded. Imaging None recorded. Medication Orders None recorded. Patient TargetsNo targets recorded. Patient Instructions Encounter Date Encounter Id Patient Instructions Last Modified By Organization Details Last Modified Time 07/21/2020 [id number] When You Want to Lose Weight: Care Instructions [email or web address] Not available 07/21/2020 10:10:24 sleep apnea: car e instructions [email or web address] Not available 07/21/2020 10:10:24 type 2 diabetes: care instructions [email or web address] Not available 07/21/2020 10:10:24 high cholesterol : care instructions [email or web address] Not available 07/21/2020 10:10:24 09/20/2021 [id number] sleep apnea: car e instructions [email or web address] Not available 09/20/2021 14:48:05 learning about type 2 diabetes [email or web address] Not available 09/20/2021 14:41:58 type 2 diabetes: care instructions [email or web address] Not available 09/20/2021 14:41:59 high cholesterol : care instructions [email or web address] Not available 09/20/2021 14:41:59 Reason for Referral [...] nts. Visit our websi te at https :[email or web address]/TravelLine [email or web address] for resou rces and infor arlene zamora. This nucle ic acid ampli ficat ion test was devel oped and its perfo rmanc e amrik cteri stics deter mined by PPT[employer] rp Labor atori es. Nucle ic acid [...] an [address] [place] [address] 1800 Joss Tenzin Gaona MD Ph:[phone] Not Available [facility] ([facility]) [address] [place] [address], [address], 11/01/2021 15:09:09 Result Notes None recorded. Problems Name Problem SNOMED Code Status Onset Date Resolution Date Notes Provider Name and Address Organization Details Recorded Time Obesity 125333946 Active 2019 250 EDMOND PEREZ MD [address], [place], [place], [facility] [employer] [facility] 0 10:00:53 Type 2 diabetes mellitus 26686524 Active 2019 EDMOND PEREZ MD [address], [place], [place], [facility] [employer] [facility] 0 09:57:17 Hyperlipide jacinto 46407952 Active 2019 EDMOND PEREZ MD [address], [place], [place], [facility] [employer] [facility] 0 09:57:27 Obstructive sleep apnea syndrome 02575222 Active 2019 sleep study EDMOND PEREZ MD [address], [place], [place], [facility] [employer] [facility] 0 10:00:12 Increased blood pressure 31871677 Active 2020 YADI FLOWERS null, [facility] [employer] [facility] 14:23:17 Nausea 627697329 Active 2020 episodes with overheat and flush EDMOND PEREZ MD [address], [place], [place], [facility] [employer] [facility] 1 14:32:09 Problem Notes None [...] Address Organization Details Last Updated DateTime 0 381111. 1 g 105 /min 16 /min 98 % 98 % 0 140 mm[Hg] 98 mm[Hg] Britney Barclay [employer] 0 09:49:31 Date Recorded Body height Body mass index (BMI) Body weight Heart rate Oxygen saturation Oxygen saturation in Arterial blood by Pulse oximetry Systolic blood pressure Diastolic blood pressure Provider Name and Address Organization Details Last Updated DateTime 1 172.09 cm 33.2 kg/m2 78790.5 4 g 103 /min 98 % 98 % 136 mm[Hg] 102 mm[Hg] YADI FLOWERS [employer] 1 14:15:04 Social History Question Answer Notes LastModified by [employer] Details LastModified Time Tobacco Smoking Status Former Smoker Britney Barclay null, [employer] 07/21/2020 09:45:44 What Is Your Level Of [...] Or The Highest Degree You Have Received? [id number] Information not available 09/20/2021 Who Is Your Employer? 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 N Past Encounters Encounter ID Performer Location Encounter Start Date Encounter Closed Date Diagnosis/Indication Diagnosis SNOMED-CT Code Diagnosis ICD10 Code Diagnosis Note [id number] EDMOND PEREZ MD [facility] [place] [id number] 07/21/2020 09:35:36 07/21/2020 10:26:10 Adult health examination 530458104 Z00.00 Hyperlipidemia 58848532 E78.5 Obesity 887024281 E66.9 Obstructiv e sleep apnea syndrome 25359254 G47.33 Type 2 jennifer betes mellitus without complication 017905367 E11.9 [id number] EDMOND PEREZ MD [facility] [place] [id number] 09/20/2021 14:04:21 09/20/2021 14:57:54 Adult health examination 608917199 Z00.00 Increased blood pressure 74928579 R03.0 Hyperlipidemia 67717835 E78.5 Type 2 jennifer betes mellitus 74990689 E11.9 Obstructiv e sleep apnea syndrome 30336150 G47.33 Health Concerns Section Related Observation LastModified by Organization Detai ls LastModified Time None Recorded Concern Status LastModified by Organization Details LastModified Time None Recorded Advance Directives Directive None Recorded Payers Encounter Date Sequence Insurance Name Policy Number Policy Cisneros Covered Member ID Cisneros Member ID Guarantor Name 07/21/2020 1 [employer] [id number] Mega Jason Gravel [id number] [employer] 09/20/2021 1 [employer] [id number] Mega Hinojosa [id number] Mega Hinojosa Notes Date Note Type Note [...] pounds EDMOND PEREZ MD [address], [place], [address], [email or web address] 07/21/2020 11:21:33 09/20/2021 text/html comprehensive history and [...] CPAP EDMOND PEREZ MD [address], [place], [address], [email or web address] 09/20/2021 14:58:04
== END 2025-01-30 09:41 | disposition home or self-care (01) ==
PROVIDERS: PCP Family Medicine; Visit Provider Physical Medicine & Rehabilitation
DX: M21.372 Foot drop, left foot (principal); G57.32 Lesion of lateral popliteal nerve, left lower limb; G63 Polyneuropathy in diseases classified elsewhere
CPT/HCPCS: 99214

== ENCOUNTER → 2025-02-03 15:36 | Outpatient (BNVA) | payer BC, SELFPAY | PROVIDERS: PCP Family Medicine; Visit Provider Surgery Vascular Surgery ==

== ENCOUNTER 2025-08-27 09:12 | Outpatient (AMB) | payer BC, SELFPAY ==
--- OUTSIDE RECORDS SUMMARY | 2024-09-24 11:09 | XMS_ITS | Encounter Summary ---
Author Organization [facility] Address [address] [place] [address] Care Team Providers Care Search Engine Optimization Analyst Name Role Phone Wendy Bhandari MD Primary Care Provider Encounter Details Date Type Department Care Team (Late st Contact Info) Description 09/24/2024 11:09 AM EDT Hospital Encounter TH HISTORIC ENCOUNTERS EASTERN CONVERSION ONLY Annelise Lundberg, DO [address] [place] [address] Karolina Mayer, STEVIE [address] [place] [address] Social History Tobacco Use Types Packs/Day Years Used Date Smoking Tobacco: Never Assessed Sex and Gender Information Value Date Recorded Sex Assigned at Not on file Legal Sex Male 8:29 PM EST Gender Identity Not on file Sexual Orientation Not on file documented as of this encounter Last Filed Vital Signs Vital Sign Reading Time Taken Comments Blood Pressure 149/95 09/24/2024 11:19 AM EDT Si tting Pulse 109 09/24/2024 11:19 AM EDT Temperature - - Respiratory Rate - - Oxygen Saturation - - Inhaled Oxygen Concentration - - Weight 94.5 kg (208 lb 6.4 oz) 09/24/2024 11:19 AM EDT Height 172.7 cm (5' 8 ) 09/24/2024 11:19 AM EDT Body Mass Index 31.69 09/24/2024 11:19 AM EDT documented in this encounter Progress Notes * STEVIE Pruitt 09/24/2024 11:00 AM EDT Images from the original note were not included. Progress Notes by Karolina Mayer PA-C at 09/24/2024 11:00 AM Author: Karolina Mayer PA-C Service: -- Author Type: Physician Stem Processing Machine Operator Filed: 09/24/2024 4:16 PM Encounter Date: 09/24/2024 Status: Signed Registered Route Associate: Karolina Mayer PA-C (Physician Stem Processing Machine Operator) Cosigner: Annelise Lundberg DO at 09/24/2024 9:[address] Bhandari, Thank you very much for referring this patient for consultation. HPI: 44-year-old male with past medical history of diabetes (A1c 11.3) who was referred to our hematology clinic by PCP team for further evaluation after unprovoked DVT. Patient states he has been experiencing left ankle/lower leg discomfort since beginning of June. He was initially diagnosed with Achilles tendinitis until his physical therapist suggested ultrasound to rule out DVT. Doppler obtained in early July showed acute nonocclusive DVT within one of the 2 left posterior tibial veins with a length of 3.2 cm. This was considered an unprovoked DVT without any prior history of DVT, HRT, surgery, hospitalization or surgeries. He quit smoking 15 years ago. He has been on Eliquis since. He initially took 10 mg twice daily x 7 days but then transitioned to5 mg once a day only instead of twice daily. His ankle is still present but much improved since itsonset. When inquired about any chest pain, shortness of breath or hemoptysis, he reports random episodes of chest pain that happened a couple times recently, last time earlier this month. Chest pain was relieved by TUMS. Currently he has no chest pain. He also denies hemoptysis or shortness of breath. He feels well otherwise and has no other medical complaints at this time. ROS: GENERAL: No malaise, significant weight loss or fever NECK: No lumps, goiter, pain or significant neck swelling RESPIRATORY: No cough, wheezing or shortness of breath CARDIOVASCULAR: + chest pain, leg swelling or palpitations GI: No abdominal discomfort, blood in stools or black stools MUSCULOSKELETAL: No joint pain or swelling, back pain, or muscle pain. HEMATOLOGY/LYMPHOLOGY No prolonged bleeding, easy bruisability or swollen nodes Other Systems review is non contributory PAST MEDICAL HISTORY: Active Ambulatory Problems Diagnosis Date Noted ? No Active Ambulatory Problems Resolved Ambulatory Problems Diagnosis Date Noted ? No Resolved Ambulatory Problems Past Medical History: Diagnosis Date ? Diabetes mellitus (HCC) PAST SURGICAL HISTORY: No past surgical history on file. Denies SOCIAL HISTORY: Social History Tobacco Use ? Smoking status: Former Types: Cigarettes ? Smokeless tobacco: Never ? Tobacco comments: Quit smoking 15 yrs ago. Substance Use Topics ? Alcohol use: Not Currently He lives with his and kids. 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 MEDICATIONS: Current Outpatient Medications: ? apixaban (ELIQUIS) 5 MG TABS tablet, Take 1 tablet (5 mg total) by mouth every 12 (twelve) hours for 45 days., Disp: 90 tablet, Rfl: 0 ? furosemide (LASIX) 20 MG tablet, Take 1 tablet (20 mg total) by mouth daily., Disp: , Rfl: ? metFORMIN (GLUCOPHAGE) tablet 1000 mg, Take 1 tablet (1,000 mg total) by mouth 2 (two) times a day with meals., Disp: , Rfl: You are allergic to the following Not on File PHYSICAL EXAM: BP (!) 149/95 Pulse 109 Temp 97.8 ??F (36.6 ??C) (Temporal) Ht 5' 8 (1.727 m) Wt 94.5 kg (208 lb 6.4 oz) SpO2 97% BMI 31.69 kg/m?? APPEARANCE: Alert and in no acute distress EYES: PERRL, conjunctiva pink and sclera are Normal without icterus ORAL CAVITY: No erythema or exudates NECK: Neck supple, no adenopathy, HEART: RRR with normal S1 and S2, no murmurs, no gallops, no JVD appreciated LUNG: clear to auscultation bilaterally LYMPH NODES: No palpable superficial adenopathy ABDOMEN: Bowel sounds normoactive, no bruits, soft, non-tender, without organomegaly or palpable masses EXTREMITIES: Extremities warm and well perfused without clubbing, cyanosis, rash, faint LLE edema without pain or erythema NEURO: Oriented X 3, no focal weakness; sensation is normal LABS: Testing: Review of Lab results , interpreted Review of Imaging, interpreted (LLE Doppler US) Review of External Documentation Tests ordered - Thrombophilia work up ASSESSMENT SNOMED CT(R) 1. Chest pain, unspecified type CHEST PAIN 2. Acute deep vein thrombosis (DVT) (HCC) ACUTE DEEP VENOUS THROMBOSIS PLAN: Acute DVT: -Diagnosed in early July 2024 -Nonocclusive DVT within one of the 2 left posterior tibial veins with a length of 3.2 cm -On Eliquis since then -Unfortunately he has been taking the wrong dose. After he completed 1 week of Eliquis 10 mg twice daily, he reduced to 5 mg once a day instead of twice daily -New Eliquis prescription sent in. Dosing instructions reviewed with patient. -Thrombophilia workup ordered -Will need anticoagulation for 3-6 months -FOV in ~ 1.5 months or sooner prn * He does have an appt with a vascular specialist next week. I asked him for the name so I could forward lab results and my notes to him/her but patient doesn't know. He will look it up at home and call us back with this information. Chest pain: -Random episodes that resolved with TUMS -He is currently asymptomatic, last episode earlier this month -No SOB or Hemoptysis -He is mildly tachycardic and given misuse of Eliquis, I will obtain CTA to r/o PE Karolina Mayer PA-C Cc: Wendy Bhandari* Sign: Karolina Mayer PA-C Hematology/Oncology Sister [facility] [phone] documented in this encounter Plan of Treatment Not on file documented as of this encounter Visit Diagnoses Not on filedocumented in this encounter Care Teams Search Engine Optimization Analyst Relationship Specialty Start Date End Date Wendy Bhandari MD [address] [place], [place] [id number] PCP - General 09/08/24 05/26/25 documented as of this encounter
--- NOTE | 2025-08-27 09:18 | MHC.OFFVIS ---
Vital Signs 08/27/25 09:24 Height 5 ft 8 in Weight 225 lb BMI 34.2 Intake Visit Reasons: OV-Abnormal electromyogram, LT foot drop Intake Note: eMga is a 45 year old male who presents today as a follow up for his left foot drop. At today's visit he states that he missed both appointments for his electromyogram, due to not missing work. He states that the left foot is feeling better and that the pain is manageable. He reports that he is still having the pulling sensation when over use, like walking for long distances. At today's visit he states that he would like to discuss shoe options and what would be recommended to help with the discomfort. Allergies No Known Allergies Allergy (Verified 08/27/25 09:24) Medication List - Last Reconciled 08/27/25 by Dorina Pederson MD blood sugar diagnostic ([employer] Ultra Test strips) As directed fenofibrate nanocrystallized 48 mg PO DAILY gabapentin 300 mg PO BID lancets (OneTouch Delica Plus Lancet) As directed leg brace (Ankle Brace) Left AFO custom molded for foot drop, prevent from rolling in metformin 1,000 mg PO BID pioglitazone 30 mg PO DAILY HPI Comments Details: Saw patient previously 12/24/2024 for EMG. It showed evidence for peripheral neuropathy and also left peroneal neuropathy at fibular neck. This is thought to be from diabetes which has been poorly controlled. He follows with Dr. Edwards who referred him to physiatry. As mentioned above, has been noticing left footdrop for a few months. . Since last time I saw him, he has gotten better. Decreased pain. Decreased tingling. He has a pain AFO from [facility]. He has regained strength with left foot dorsiflexion. 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 Patient was appropriately conversant and oriented. Good historian. MSK: Improved strength on left dorsiflexion, almost 5/5. Left EHL still not within full range. No weakness on inversion or eversion. No clonus. Good heel strike with gait, while wearing AFO. No tenderness on palpation of ankle or foot. No signs of inflammation. Results Reviewed Results Reviewed: EMG done by me 12/24/2024: IMPRESSION: 1. This is an abnormal study. 2. 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 3. There is no electrodiagnostic evidence for lumbosacral plexopathy or lumbar radiculopathy. Assessment & Plan Assessment & Plan (1) Left foot drop: Code(s): M21.372 - Foot drop, left foot Category: Medical (2) Neuropathy of left peroneal nerve: Code(s): G57.32 - Lesion of lateral popliteal nerve, left lower limb Category: Medical (3) Peripheral neuropathy: Code(s): G62.9 - Polyneuropathy, unspecified Category: Medical Qualifiers: Peripheral neuropathy type: polyneuropathy associated with underlying disease Qualified Code(s): G63 - Polyneuropathy in diseases classified elsewhere Plan He is regaining back is strengthen on left foot. He is wearing the AFO as prescribed and obtained from [facility]. He is wondering if he can use a shoe insert in addition to or and replacement of AFO. Referral/prescription sent to [facility]. No need for repeat EMG at this point. Assessment and plan discussed with patient, and patient was agreeable. All questions were answered thoroughly. Can follow up every 6 months or as needed. Dorina Pederson MD, KT Board Certified, [place] Board of Physical Medicine and Rehabilitation (ABPMR) Board Certified, [place] Board of Electrodiagnostic Medicine (ABEM) Medications: New prosthetics Left custom shoe insert for left foot drop, in addition to or replacement of left AFO 1 ea 0RF Coding Level of Care Code Est Pt Level 4 (01599) Diagnoses Left foot drop M21.372 Neuropathy of left peroneal nerve G57.32 Polyneuropathy associated with underlying disease G63 Peripheral neuropathy type: polyneuropathy associated with underlying disease
[2025-08-27 09:24] VITALS: BMI 34.2
--- OUTSIDE RECORDS SUMMARY | 2025-08-27 10:03 | XMS_ITS | Clinical Summary ---
Author Organization [facility] Address [address] [place] [address] Care Team Providers Care Instrument Person Name Role Phone Wendy Bhandari MD Primary [...] 109 09/24/2024 11:19 AM EDT Temperature 36.6 C (97.8 F) 09/24/2024 11:19 AM EDT Respiratory Rate - - Oxygen Saturation 97% [...] Tdap / Td (1 - Tdap) 1999 Colon Cancer Screening (Colonoscopy) 2025 Influenza Vaccine (#1) 2025 Pneumococcal Vaccine Aged Out No long er eligible based on patient's age to complete this topic RSV Ped < 20 months Aged Out No longe r eligible based on patient's age to complete this topic Care Teams Instrument Person Relationship Specialty Start Date End Date Wendy Bhandari MD [address] [place] [address] PCP - General Family Medicine 08/26/24
--- OUTSIDE RECORDS SUMMARY | 2025-08-27 10:03 | XMS_ITS | Clinical Summary ---
Author Organization [facility] Address [address] [place] [address] Phone Care Team Providers Care Bank Guard Name Role Phone Unavailable Primary Care Provider Unavailabl e Allergies No known active allergies Medications blood-glucose meter misc Use to check sugars once daily. 08/15/20 24 Active ONETOUCH DELICA LANCETS MISC Use to check sugars once daily 08/15/20 24 Active glucose blood test strip Use to test sugars once daily 08/15/20 24 Active lisinopriL (PRINIVIL,ZESTRIL) 5 mg tabletIndications:Ivett vated blood-pressure reading, without diagnosis of hypertension,Proteinu rolando, unspecified TAKE 1 TABLET BY MOUTH EVERY DAY 90 tablet 11/12/20 24 Active apixaban (Eliquis) 5 mg tablet Take 1 tablet (5 mg total) by mouth 2 (two) times a day. 60 each 2 12/08/19 25 Active metFORMIN (GLUCOPHAGE) 1,000 mg tabletIndications:Obe sity, unspecified,Type 2 diabetes mellitus with hyperglycemia (CMS/HCC V24, CMS/HCC V28) TAKE 1 TABLET DAILY FOR 1 WEEK THEN INCREASE TO 1 TABLET TWICE A DAY 180 tablet 02/03/20 25 Active fenofibrate (TRICOR) 48 mg tabletIndications:Pur e hyperglyceridemia TAKE 1 TABLET BY MOUTH EVERY DAY 90 tablet 03/24/20 25 Active Surgical History Surgery Date Site/Laterality Comments OTHER [...] Health Maintenance Due Date Last Done Comments Colorectal Cancer Screening: Colonoscopy 1980 Diabetes: Annual Foot Exam 1990 Diabetes: Annual Retina Eye Exam 1990 DTaP,Tdap,and Td Vaccines (1 - Tdap) 1999 Hepatitis B Vaccines (1 of 3 - 19+ 3-dose series) 1999 Pneumococcal Vaccine: Pediatrics (0 to 5 Years) and At-Risk Patients (6 to 49 Years) (1 of 2 - PCV) 1999 HPV Vaccines (1 - 3-dose SCDM series) 2007 HIV Screening 12/21/2023 Hepatitis C Screening 12/21/2023 Social Influencers of Health Screening 12/21/2023 Depression Screening 11/26/2024 Diabetes: Blood Sugar Control Test (HGBA1C) 03/05/2025 09/04/2024, 09/04/2024 COVID-19 Vaccine ( - season) 2025 Influenza Vaccine (#1) 2025 Diabetes: Annual Urine Albumin-Creatinine Ratio (uACR) 08/15/2025 08/15/2024 Diabetes: Annual GFR (Glomerular Filtration Rate) 09/04/2025 09/04/2024, 09/04/2024, 08/15/2024 Cholesterol Screening (Lipid Panel) 09/04/2029 09/04/2024, 09/04/2024, 09/04/2024, Additional history exists RSV Immunization Adult Patients (1 - 1-dose 75+ series) 2055 HIB Vaccines Aged Out No longer eligi [...] age to complete this topic Meningococcal B Vaccine Aged Out No l onger eligible based on patient's age to complete this topic RSV Immunization Patients Under 20 months Aged Out No longer eligible based on patient's age to complete this topic Varicella Vaccines Aged Out No longer eligible based on patient's age to complete this topic Procedures Procedure Name Priority Date/Time Associated Diagnosis Comments ANNUAL BMP BLOOD TEST Routine 09/04/2024 HEMOGLOBIN A1C Routine 09/04/2024 LIPID PANEL Routine 09/04/2024 URINE ALBUMIN CREATININE RATIO Routine 08/15/2024 from Last 3 Months or Most Recently Relevant to Health Maintenance Results * Annual BMP Blood Test (09/04/2024) Annual BMP Blood Test abstracted us Historical Provider HEALTH MAINTENANCE Final Result * (ABNORMAL) Hemoglobin A1c (09/04/2024) Hemoglobin A1C 9.7(A) <=6.5 % Blood Venous blood specimen / Unknown Historical Provider LAB BLOOD ORDERABLES Mitali l Result * (ABNORMAL) Lipid panel (09/04/2024) LDL/HDL Ratio 8(A) 0 - 4 Triglycerides 569(A) 0 - 150 mg/dL Cholesterol 219(A) 0 - 200 mg/dL HDL 28(A) >=40 mg/dL Blood Venous blood specimen / Unknown Result [facility] Provider LAB BLOOD ORDERABLES Mitali l Result * HM Urine Albumin Creatinine Ratio (08/15/2024) Urine Albumin Creatinine Ratio abstracted [facility] Provider HEALTH MAINTENANCE Final Result from Last 3 Months or Most Recently Relevant to Health Maintenance Insurance [facility])
== END 2025-08-27 09:40 | disposition home or self-care (01) ==
PROVIDERS: Visit Provider Physical Medicine & Rehabilitation
DX: M21.372 Foot drop, left foot (principal); G57.32 Lesion of lateral popliteal nerve, left lower limb; G63 Polyneuropathy in diseases classified elsewhere
CPT/HCPCS: 99213